=== PATIENT | female | born 1955 | race Caucasian/White ===

== ENCOUNTER 2022-10-22 23:20 | Inpatient (IN) ==
[2022-10-23 00:56] LABS: Basophils # (auto) 0.08 K/uL (0-0.2); Basophils % (auto) 0.9 %; Eosinophils # (auto) 0.29 K/uL (0-0.50); Eosinophils % (auto) 3.2 %; Hematocrit (blood only) 31.9 % (37.0-47.0); Hemoglobin 10.1 g/dl (12.0-16.0); Immature Granulocytes # (auto) 0.13 K/uL (0.01-0.20); Immature Granulocytes % (auto) 1.4 %; Lymphocytes # (auto) 3.49 K/uL (1.2-3.4); Lymphocytes % (auto) 38.3 %; Mean Corpuscular Hemoglobin 25.3 pg (25.0-34.0); Mean Corpuscular Hgb Conc 31.7 g/dL (32.0-36.0); Mean Corpuscular Volume 79.9 fL (80.0-100.0); Mean Platelet Volume 10.5 fL (9.4-12.4); Monocytes # (auto) 0.52 K/uL (0.11-0.59); Monocytes % (auto) 5.7 %; Neutrophils % (auto) 50.5 %; Nucleated RBC # (auto) 0.02 K/uL (0-0.12); Nucleated RBC % (auto) 0.2 %; Platelet Count 396 K/uL (130-400); RDW Coefficient of Variation 17.2 % (11.5-14.5); RDW Standard Deviation 49.2 fL (36.4-46.3); Red Blood Count 3.99 M/uL (4.20-5.40); White Blood Count 9.11 K/ul (4.8-10.8)
[2022-10-23 01:03] LABS: Alanine Aminotransferase 33 U/L (7-52); Albumin Globulin Ratio 1.2 (0.9-2); Albumin Level 4.2 gm/dl (3.4-5.0); Alkaline Phosphatase 290 U/L (34-104); Anion Gap 13 (3-11); Aspartate Aminotransferase 104 U/L (13-39); Bilirubin,Total 0.5 mg/dl (0.2-1.0); Blood Urea Nitrogen 24 mg/dl (6-23); Calcium 9.9 mg/dl (8.6-10.3); Carbon Dioxide 23 mmol/L (21-32); Chloride 100 mmol/L (98-107); Est GFR (African American) 34.6 ml/min; Est GFR (Non-African American) 29.8 ml/min; Globulin 3.5 gm/dl (2.5-4.0); Glucose 93 mg/dl (70-99(Fasting)); Potassium 4.1 mmol/L (3.5-5.1); Sodium 136 mmol/L (136-145); Total Protein 7.7 gm/dl (6.0-8.3)
[2022-10-23 01:09] LABS: Troponin I High Sensitivity 12.1 pg/ml (0-14)
[2022-10-23 02:01] LABS: Magnesium 2.3 mg/dl (1.7-2.4)
[2022-10-23 02:05] LABS: Partial Thromboplastin Ratio 0.9; Partial Thromboplastin Time 26.7 Seconds (21.0-31.0)
[2022-10-23] MEDS ORDERED: methylPREDNISolone 20 MG in SYRINGE 0 ML IV STA (02:39)
[2022-10-23] MEDS ORDERED: IPRATROPIUM BROMIDE NEB SOLN 0.02% 2.5 ML VIAL INH STA (02:39)
[2022-10-23] MEDS ORDERED: XOPENEX/ATROVENT 1.25mg/0.5MG NEB COMBO NEB STA (02:39)
[2022-10-23] MEDS ORDERED: LEVALBUTEROL 1.25MG/0.5ML NEB INH STA (02:39)
--- NOTE | 2022-10-23 02:39 | History & Physical Report ---
Date of Service October 23, 2022 Assessment & Plan (1) Acute hypoxemic respiratory failure: Plan: Secondary to recurrent bronchitis (probable underlying COPD) exacerbation Underlying lung parenchymal abnormalities CT chest from last month (diffuse bronchial thickening, diffuse metastatic disease with chest masses, probable lymphangitic spread), recent diagnosis breast cancer with lung mets CRI, creatinine at baseline chronic anemia, hemoglobin at baseline New diagnosis of hypothyroidism, TSH markedly elevated at 150, patient with mild hypothermia past tobacco abuse Medical telemetry Supplemental O2 baseline ABG Treatment for possible COPD exacerbation nebs RTC, low-dose steroid course (patient concerned about heart racing following steroid Rx administration) 2- step test in a.m. facilitate home O2 Social service re: home O2 arrangement ([employer] was to provide patient's home O2 pending authorization by [employer] as per outpatient documentation.) Initiate levothyroxine, recheck outpatient TSH next month DVT prophylaxis. Heparin subcu DNR as per patient's prior wishes. Patient daughter in law requesting updates for providers. Ms. Yashira Padilla, contact #[phone]. Text document was generated using [employer] voice recognition software. It may contain grammatical or spelling errors. Kindly contact undersigned for clarification of any documentation item in question. History of Present Illness Chief Complaint: Shortness of breath, need home O2 Primary Care Provider: Van Aquino DO History obtained from patient, family, and records. Medical history significant for recent diagnosis of breast cancer with lung mets, CRI (baseline creatinine 1.7), chronic anemia (baseline hemoglobin of 10), past tobacco abuse. Last confinement 2011 under General Surgery service for acute cholecystitis status post cholecystectomy. Patient has not seen a primary care doctor until last month following [facility] ER visit for shortness of breath symptoms along with abnormal chest x-ray findings after patient seen the urgent care center for bronchitis symptoms. CT chest negative for pulmonary embolus. Diffuse metastatic disease with chest masses, sclerotic masses, axillary adenopathy and mediastinal adenopathy. Mild pulmonary edema, reactive airway disease, lymphangitic spread of tumor or typical infection could have the appearance. Patient mentioned left breast mass following ER physician query. Outpatient biopsy of left breast mass and left axillary node biopsy done 2 weeks ago showed invasive carcinoma and focal metastatic carcinoma, respectively. Outpatient G Oncology consultation contemplated this month to discuss options. Patient noted worsening shortness of breath the last couple of weeks without chest pain or fluid retention or leg swelling. Shortness of breath worse on motion. Patient coughing more than usual as per [id number]. Cough productive of clear sputum as per patient. Denies aspiration. Not sure about COVID-19 contacts. Patient has not received COVID-19 vaccination. Patient seen at PCPs office 4 days ago for shortness of breath. O2 sats 89 on room air with drop to 87% with ambulation. Patient qualifies for oxygen with ambulation and possibly nighttime as well as per PCP note. 6-minute ambulation test at doctor's office required for preauthorization as per note. Patient waiting for test date from PCPs office. Worsening shortness of breath at home. No fever, no chills, no chest pain, no fluid retention. Same cough productive of clear sputum. O2 sats noted to be 80s at home despite during oxygen supplement from [employer]. O2 sats 86% upon arrival at the ER. 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 Allergies Allergy/AdvReac Type Severity Reaction Status Date / Time Nitrate Analogues Allergy Intermediate ITCHING Verified 10/22/22 23:42 nitrofurantoin Allergy Intermediate ITCHING Verified 10/22/22 23:42 scopolamine Allergy Unknown Unknown Verified 10/22/22 23:42 Home Medications Medication Instructions Recorded Confirmed Type albuterol sulfate 90 mcg/actuation 2 puff inhalation DIRECTED PRN 10/22/22 10/22/22 History aerosol inhaler Shortness Of Breath Or Wheezing aspirin 81 mg tablet,delayed 81 mg PO DAILY 10/22/22 10/22/22 History release vit C 250 mg-vit E 90 mg-zinc 40 1 tab PO BID 10/22/22 10/22/22 History mg-copper 1 [id number] capsule (PreserVision AREDS-2) Past Med/Surg History Social History Smoking Status: Former smoker Second Hand Exposure: No; Do You Dip or Chew Tobacco: No; Hx Alcohol Use: No Hx Substance Use: No Preferred Language: Georgian Communication Ability: 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: No Beliefs That Will Affect Care: None Current Living Situation: Family Current Living Situation Comment: lives with sister Feels Safe at Home: Yes Assistive Devices: None Review of Systems Review of Systems: As per HPI, all other systems reviewed and negative Physical Exam Physical Exam: GENERAL: Comfortable, pleasant, no respiratory distress SKIN: Pallor, cool HEENT: Bespectacled, pale palpebral conjunctivae, no ptosis, dry buccal mucosa, nasal cannula in place NECK : Supple, no tenderness CHEST : Decreased breath sounds, expiratory wheezes, no tenderness HEART : RRR, no obvious murmurs ABDOMEN: Some distention, nontender EXTREMITIES : No LE swelling/tenderness, no other conspicuous deformities noted NEUROLOGIC : Coherent, no facial asymmetry, no other gross focality Results & Data Results & Data Vital Signs (Past 12 Hours) Vital Signs Temp Pulse Pulse Resp BP BP Pulse Ox 10/23/22 01:08 92 H 24 145/103 H 97 10/23/22 01:07 89 L 10/22/22 23:32 91 H 10/22/22 23:30 86 L 10/22/22 23:24 35.9 C L 100 H 24 116/79 92 O2 Del Method O2 Flow Rate 10/23/22 01:08 Nasal Cannula 2 10/23/22 01:07 Room Air 10/22/22 23:32 10/22/22 23:30 Room Air 10/22/22 23:24 Room Air Laboratory Results Laboratory Results WBC 9.11 K/ul (4.8-10.8) 10/23/22 00:25 RBC 3.99 M/uL (4.20-5.40) L 10/23/22 00:25 Hgb 10.1 g/dl (12.0-16.0) L 10/23/22 00:25 Hct 31.9 % (37.0-47.0) L 10/23/22 00:25 MCV 79.9 fL (80.0-100.0) L 10/23/22 00:25 MCH 25.3 pg (25.0-34.0) 10/23/22 00:25 MCHC 31.7 g/dL (32.0-36.0) L 10/23/22 00:25 RDW Std Deviation 49.2 fL (36.4-46.3) H 10/23/22 00:25 RDW Coeff of Vero 17.2 % (11.5-14.5) H 10/23/22 00:25 Plt Count 396 K/uL (130-400) 10/23/22 00:25 MPV 10.5 fL (9.4-12.4) 10/23/22 00:25 Immature Gran % (Auto) 1.4 % 10/23/22 00:25 Neut % (Auto) 50.5 % 10/23/22 00:25 Lymph % (Auto) 38.3 % 10/23/22 00:25 [place] % (Auto) 5.7 % 10/23/22 00:25 Eos % (Auto) 3.2 % 10/23/22 00:25 Baso % (Auto) 0.9 % 10/23/22 00:25 Neut # (Auto) 4.60 K/uL (1.40-6.50) 10/23/22 00:25 Lymph # (Auto) 3.49 K/uL (1.2-3.4) H 10/23/22 00:25 [place] # (Auto) 0.52 K/uL (0.11-0.59) 10/23/22 00:25 Eos # (Auto) 0.29 K/uL (0-0.50) 10/23/22 00:25 Baso # (Auto) 0.08 K/uL (0-0.2) 10/23/22 00:25 Immature Gran # (Auto) 0.13 K/uL (0.01-0.20) 10/23/22 00:25 Absolute Nucleated RBC 0.02 K/uL (0-0.12) 10/23/22 00:25 Nucleated RBC % (auto) 0.2 % 10/23/22 00:25 APTT 26.7 Seconds (21.0-31.0) 10/23/22 00:25 PTT Ratio 0.9 10/23/22 00:25 Sodium 136 mmol/L (136-145) 10/23/22 00:25 Potassium 4.1 mmol/L (3.5-5.1) 10/23/22 00:25 Chloride 100 mmol/L (98-107) 10/23/22 00:25 Carbon Dioxide 23 mmol/L (21-32) 10/23/22 00:25 Anion Gap 13 (3-11) H 10/23/22 00:25 BUN 24 mg/dl (6-23) H 10/23/22 00:25 Creatinine 1.72 mg/dl (0.6-1.2) H 10/23/22 00:25 Est Cr Clr Drug Dosing Not Reportable 10/23/22 00:25 Est GFR ( Amer) 34.6 ml/min 10/23/22 00:25 Est GFR (Non-Af Amer) 29.8 ml/min 10/23/22 00:25 BUN/Creatinine Ratio 14.0 (10-20) 10/23/22 00: Glucose 93 mg/dl (70-99(Fasting)) 10/23/22 00:25 Calcium 9.9 mg/dl (8.6-10.3) 10/23/22 00:25 Magnesium 2.3 mg/dl (1.7-2.4) 10/23/22 00:25 Total Bilirubin 0.5 mg/dl (0.2-1.0) 10/23/22 00:25 AST 104 U/L (13-39) H 10/23/22 00:25 ALT 33 U/L (7-52) 10/23/22 00:25 Alkaline Phosphatase 290 U/L (34-104) H 10/23/22 00:25 Troponin I High Sens 12.1 pg/ml (0-14) 10/23/22 00:25 Total Protein 7.7 gm/dl (6.0-8.3) 10/23/22 00:25 Albumin 4.2 gm/dl (3.4-5.0) 10/23/22 00:25 Globulin 3.5 gm/dl (2.5-4.0) 10/23/22 00:25 Albumin/Globulin Ratio 1.2 (0.9-2) 10/23/22 00:25 SARS-CoV-2, RNA, NAAT NEGATIVE (NEGATIVE) 10/23/22 00:25 Diagnostic Findings Chest x-ray as per my interpretation diffuse interstitial thickening EKG as per my interpretation :Rate 95, NSR, LAD, LAFB, no ischemia
[2022-10-23 03:36] LABS: Base Excess ABG -1.1 mEq/L (-9-1.8); HCO3 ABG 24 mmol/L (19-24); PCO2 ABG 38 mmHg (35-46); PO2 ABG 80 mmHg (80-95)
[2022-10-23 03:38] LABS: Allen Test Pos (Pos)
[2022-10-23] MEDS ORDERED: PROMETHAZINE HCL 6.25 MG in SODIUM CHLORIDE 0.9% 50 ML IV PRN (06:10)
[2022-10-23] MEDS ORDERED: traMADol HCL 50 MG TABLET PO PRN (06:10)
[2022-10-23] MEDS ORDERED: ACETAMINOPHEN 325 MG TAB PO PRN (06:10)
[2022-10-23 06:18] LABS: Thyroid Stimulating Hormone 150.853 uIu/ml (0.300-4.500)
--- NOTE | 2022-10-23 06:53 | XRay Report ---
XR chest 1V portable CLINICAL HISTORY: Dyspnea. COMPARISON STUDY: Chest radiograph November 30, 2011. FINDINGS: There is no pneumothorax. No definite pleural effusion is noted. Diffuse reticulonodular in terstitial thickening is noted. There is no lobar consolidation. Cardiomediastinal silhouette is unre markable on portable AP exam. IMPRESSION: Nonspecific diffuse reticulonodular interstitial thickening. ACT 112: Negative or not required by law. Electronically signed by: Manpreet Edward M.D. 10/23/2022 6:52 AM
[2022-10-23] MEDS ORDERED: XOPENEX/ATROVENT 1.25mg/0.5MG NEB COMBO NEB SCH (07:00)
[2022-10-23] MEDS: IPRATROPIUM BROMIDE NEB SOLN 0.02% 2.5 ML VIAL INH SCH ×4 (07:02→19:58)
[2022-10-23] MEDS: LEVALBUTEROL 1.25MG/0.5ML NEB INH SCH ×4 (07:02→19:58)
[2022-10-23 07:14] LABS: T4 Free Thyroxine < 0.25 ng/dl (0.61-1.60)
[2022-10-23] MEDS: HEPARIN SOD 5,000 UNIT/0.5 ML VIAL SQ SCH ×3 (08:03→22:58)
[2022-10-23] MEDS: ASPIRIN 81 MG ECTAB PO SCH (08:03)
[2022-10-23] MEDS: CEROVITE ADV FORMULA TAB PO SCH ×2 (08:03→22:58)
--- NOTE | 2022-10-23 08:17 | Emergency Department Note ---
Impression & Plan Hypoxia Admit to the [facility] ED Provider Note NAME: JACK FRASER AGE: 67 SEX: F ARRIVES VIA: Walk-In INFORMANT: Patient and her daughter ED PROVIDER(S): Herlinda Anderson DO CHIEF COMPLAINT: Low oxygen saturation and shortness of breath PLAN: Disposition: Admit to the [facility] Condition: Guarded MEDICAL DECISION MAKING: This is a 67-year-old female patient presents emergency department with low O2 saturations and shortness of breath. Patient has a history of lung cancer who is in the process of trying to secure home oxygen. Unfortunately because of insurance reasons, the patient was unable to secure home oxygen. She was trying to use oxygen boost canisters which she had purchased at [facility] but kept feeling more uncomfortable and had an O2 saturation readings between 84 and 86% at home. On presentation to the ER, her O2 sat was 86% on room air. I did review multiple external medical records in [facility] including Dr. Rea's primary care visit as well as breast biopsy records. Laboratory studies revealed a mild anemia and slightly elevated creatinine. [facility] and [facility] will [facility] for further management. Triage Nursing notes reviewed and agree with them. Additional history obtained from the patient's daughter who is at the bedside. External medical records were reviewed from [facility] Vital Signs: reviewed and remarkable for tachycardia and hypoxia Differential diagnosis: Hypoxia, pneumonia, lung cancer, breast cancer, pneumothorax ER treatment provided: Cardiac monitoring, twelve-lead EKG, supplemental O2 Diagnostics independently interpreted by me: ECG: Normal sinus rhythm at a rate of [address] segment elevation or signs of ischemia. There is no ectopy. Cardiac Monitoring: Normal sinus rhythm at a rate of 90 Laboratory studies: See below Imaging studies: As per my independent interpretation Portable chest x-ray: Chronic interstitial changes HPI: 67/F arrives for evaluation of hypoxia. Patient has a history of lung cancer and has been having shortness of breath and low oxygen saturations. She was seen at her PCP office on Wednesday where she was diagnosed with hypoxia and they ordered her to have home oxygen. She had been trying to work through [employer] and [employer] to obtain home oxygen but was unsuccessful. She has been using oxygen boost canisters that she purchased at [employer] to help her breathe. Tonight, she became so uncomfortable without the oxygen she came here to the emergency department for help. PAST MEDICAL HISTORY:See Below PAST SURGICAL HISTORY:See Below FAMILY HISTORY:See Below SOCIAL HISTORY:See Below HOME MEDICATIONS:See list ALLERGIES:See list VITALS:See Below PHYSICAL EXAMINATION: HEENT: Head - normocephalic and atraumatic. Pupils are equal, round, and reactive to light. Extraocular eye muscles are intact, and sclera are anicteric. Nose - moist nasal mucosa without discharge. Mouth - moist buccal mucosa. Oropharynx is nonerythematous and there is no tonsillar exudate or edema noted. Neck: Supple; no cervical lymphadenopathy or JVD Heart: Regular rate and rhythm. There is a normal S1 and S2 with no murmurs, clicks, or gallops appreciated. Lungs: Clear to auscultation bilaterally with no wheezes, rales, or rhonchi. Abdomen: Soft, completely nontender, nondistended, with good bowel sounds. There are no palpable pulsatile masses or hepatosplenomegaly. There is no guard ing, rigidity, or rebound noted. Extremities: No evidence of cyanosis, clubbing, or edema. There are easily palpable peripheral pulses. Skin: warm and dry with good turgor and no rashes. ED COURSE: Times/Reassessments: 2335: Patient was evaluated in room B3. A complete history and physical was performed. External records from [facility] were reviewed. Breast cancer biopsies result were reviewed. An IV lock was initiated and labs were drawn as above. A twelve-lead EKG was obtained. An order was placed for continuous cardiac monitoring. The patient was in a normal sinus rhythm at a rate of 90. Herlinda Anderson DO Past Med/Surg History Social History Smoking Status: Former smoker Second Hand Exposure: No; Do You Dip or Chew Tobacco: No; Hx Alcohol Use: No Hx Substance Use: No Preferred Language: Welsh Communication Ability: Effective Publications Writer Required: No Beliefs That Will Affect Care: None Current Living Situation: Family Current Living Situation Comment: lives with sister Feels Safe at Home: Yes Assistive Devices: None Allergies Allergies Allergy/AdvReac Type Severity Reaction Status Date / Time Nitrate Analogues Allergy Intermediate ITCHING Verified 10/22/22 23:42 nitrofurantoin Allergy Intermediate ITCHING Verified 10/22/22 23:42 scopolamine Allergy Unknown Unknown Verified 10/22/22 23:42 Home Meds Home Medications Medication Instructions Recorded Confirmed albuterol sulfate 90 mcg/actuation 2 puff inhalation DIRECTED PRN 10/22/22 10/22/22 aerosol inhaler Shortness Of Breath Or Wheezing aspirin 81 mg tablet,delayed 81 mg PO DAILY 10/22/22 10/22/22 release vit C 250 mg-vit E 90 mg-zinc 40 1 tab PO BID 10/22/22 10/22/22 mg-copper 1 [id number] capsule (PreserVision AREDS-2) Results & Data (ED) Vital Signs Vital Signs - 24 hr 10/22/22 23:24 10/22/22 23:30 10/22/22 23:32 Temperature 35.9 C L Temperature Source Temporal Artery Scan Pulse Rate 100 H 91 H Pulse Rate [Apical] Respiratory Rate 24 Respiratory Effort / Characteristics Non-Labored Spontaneous Respiratory Depth Normal Blood Pressure 116/79 Blood Pressure [Right Arm] Blood Pressure Mean 91 Blood Pressure Mean [Right Arm] Pulse Oximetry 92 86 L Oxygen Delivery Method Room Air Room Air Oxygen Flow Rate Sepsis Recent Fever Within 48 Hours No Sepsis New/Unexplained Change in Mental Status No Sepsis Action Taken by Nursing No Action Required Oxygen Flow Rate - Titration 2 Pulse Oximetry Post Tiitration 92 10/23/22 01:07 10/23/22 01:08 Temperature Temperature Source Pulse Rate Pulse Rate [Apical] 92 H Respiratory Rate 24 Respiratory Effort / Characteristics Respiratory Depth Blood Pressure Blood Pressure [Right Arm] 145/103 H Blood Pressure Mean Blood Pressure Mean [Right Arm] 117 Pulse Oximetry 89 L 97 Oxygen Delivery Method Room Air Nasal Cannula Oxygen Flow Rate 2 Sepsis Recent Fever Within 48 Hours Sepsis New/Unexplained Change in Mental Status Sepsis Action Taken by Nursing Oxygen Flow Rate - Titration Pulse Oximetry Post Tiitration Laboratory Data 10/23/22 00:25 10/23/22 00:25 Lab Results 10/23/22 10/23/22 10/23/22 Range/Units 00:25 00:25 00:25 WBC 9.11 (4.8-10.8) K/ul RBC 3.99 L (4.20-5.40) M/uL Hgb 10.1 L (12.0-16.0) g/dl Hct 31.9 L (37.0-47.0) % MCV 79.9 L (80.0-100.0) fL MCH 25.3 (25.0-34.0) pg MCHC 31.7 L (32.0-36.0) g/dL RDW Std Deviation 49.2 H (36.4-46.3) fL RDW Coeff of Vero 17.2 H (11.5-14.5) % Plt Count 396 (130-400) K/uL MPV 10.5 (9.4-12.4) fL Immature Gran % (Auto) 1.4 % Neut % (Auto) 50.5 % Lymph % (Auto) 38.3 % [place] % (Auto) 5.7 % Eos % (Auto) 3.2 % Baso % (Auto) 0.9 % Neut # (Auto) 4.60 (1.40-6.50) K/uL Lymph # (Auto) 3.49 H (1.2-3.4) K/uL [place] # (Auto) 0.52 (0.11-0.59) K/uL Eos # (Auto) 0.29 (0-0.50) K/uL Baso # (Auto) 0.08 (0-0.2) K/uL Immature Gran # (Auto) 0.13 (0.01-0.20) K/uL Absolute Nucleated RBC 0.02 (0-0.12) K/uL Nucleated RBC % (auto) 0.2 % APTT (21.0-31.0) Seconds PTT Ratio Sodium 136 (136-145) mmol/L Potassium 4.1 (3.5-5.1) mmol/L Chloride 100 (98-107) mmol/L Carbon Dioxide 23 (21-32) mmol/L Anion Gap 13 H (3-11) BUN 24 H (6-23) mg/dl Creatinine 1.72 H (0.6-1.2) mg/dl Est Cr Clr Drug Dosing Not Reportable Est GFR ( Amer) 34.6 ml/min Est GFR (Non-Af Amer) 29.8 ml/min BUN/Creatinine Ratio 14.0 (10-20) Glucose 93 (70-99(Fasting)) mg/dl Calcium 9.9 (8.6-10.3) mg/dl Magnesium 2.3 (1.7-2.4) mg/dl Total Bilirubin 0.5 (0.2-1.0) mg/dl AST 104 H (13-39) U/L ALT 33 (7-52) U/L Alkaline Phosphatase 290 H (34-104) U/L Troponin I High Sens 12.1 (0-14) pg/ml Total Protein 7.7 (6.0-8.3) gm/dl Albumin 4.2 (3.4-5.0) gm/dl Globulin 3.5 (2.5-4.0) gm/dl Albumin/Globulin Ratio 1.2 (0.9-2) TSH (0.300-4.500) uIu/ml Free T4 (0.61-1.60) ng/dl SARS-CoV-2, RNA, NAAT NEGATIVE (NEGATIVE) 10/23/22 10/23/22 Range/Units 00:25 00:25 WBC (4.8-10.8) K/ul RBC (4.20-5.40) M/uL Hgb (12.0-16.0) g/dl Hct (37.0-47.0) % MCV (80.0-100.0) fL MCH (25.0-34.0) pg MCHC (32.0-36.0) g/dL RDW Std Deviation (36.4-46.3) fL RDW Coeff of Vero (11.5-14.5) % Plt Count (130-400) K/uL MPV (9.4-12.4) fL Immature Gran % (Auto) % Neut % (Auto) % Lymph % (Auto) % [place] % (Auto) % Eos % (Auto) % Baso % (Auto) % Neut # (Auto) (1.40-6.50) K/uL Lymph # (Auto) (1.2-3.4) K/uL [place] # (Auto) (0.11-0.59) K/uL Eos # (Auto) (0-0.50) K/uL Baso # (Auto) (0-0.2) K/uL Immature Gran # (Auto) (0.01-0.20) K/uL Absolute Nucleated RBC (0-0.12) K/uL Nucleated RBC % (auto) % APTT 26.7 (21.0-31.0) Seconds PTT Ratio 0.9 Sodium (136-145) mmol/L Potassium (3.5-5.1) mmol/L Chloride (98-107) mmol/L Carbon Dioxide (21-32) mmol/L Anion Gap (3-11) BUN (6-23) mg/dl Creatinine (0.6-1.2) mg/dl Est Cr Clr Drug Dosing Est GFR ( Amer) ml/min Est GFR (Non-Af Amer) ml/min BUN/Creatinine Ratio (10-20) Glucose (70-99(Fasting)) mg/dl Calcium (8.6-10.3) mg/dl Magnesium (1.7-2.4) mg/dl Total Bilirubin (0.2-1.0) mg/dl AST (13-39) U/L ALT (7-52) U/L Alkaline Phosphatase (34-104) U/L Troponin I High Sens (0-14) pg/ml Total Protein (6.0-8.3) gm/dl Albumin (3.4-5.0) gm/dl Globulin (2.5-4.0) gm/dl Albumin/Globulin Ratio (0.9-2) TSH 150.853 H (0.300-4.500) uIu/ml Free T4 < 0.25 L (0.61-1.60) ng/dl SARS-CoV-2, RNA, NAAT (NEGATIVE) Administered Medications Aspirin (Aspirin 81 Mg Ectab) 81 mg PO DAILY [facility] Stop: 11/22/22 08:59 Last Admin: 10/23/22 08:03 Dose: 81 mg Documented By: EAN Budesonide (Budesonide 0.25 Mg/2 Ml Vial (Pulmicort)) 0.25 mg NEB BIDR [facility] Stop: 11/22/22 18:59 Last Admin: 10/23/22 19:58 Dose: 0.25 mg Documented By: CHANDRIKA Doxycycline Hyclate (Doxycycline Hyclate 100 Mg Cap) 100 mg PO BID [facility] Stop: 10/30/22 11:29 Last Admin: 10/23/22 11:46 Dose: 100 mg Documented By: EAN Formoterol Fumarate (Formoterol 20 Mcg/2 Ml Vial) 20 mcg INH BIDR [facility] Stop: 11/22/22 18:59 Last Admin: 10/23/22 19:58 Dose: 20 mcg Documented By: CHANDRIKA Guaifenesin (Guaifenesin 600 Mg Tabcr) 600 mg PO Q12 [facility] Stop: 11/22/22 11:24 Last Admin: 10/23/22 11:46 Dose: 600 mg Documented By: EAN Heparin Sodium (Porcine) (Heparin Sod 5,000 Unit/0.5 Ml Vial) 5,000 units SQ Q8 [facility] Stop: 11/22/22 06:09 Last Admin: 10/23/22 14:58 Dose: 5,000 units Documented By: Admin: 10/23/22 08:03 Dose: 5,000 units Documented By: EAN Ceftriaxone Sodium 2,000 mg/ (Dextrose) 70 mls @ 100 mls/hr IV DAILY SHEREEN; Protocol Stop: 10/30/22 11:29 Last Infusion: 10/23/22 12:28 Dose: 0 mls/hr Documented By: Admin: 10/23/22 11:46 Dose: 100 mls/hr Documented By: EAN Ipratropium Spring (Ipratropium Spring Neb Soln 0.02% 2.5 Ml Vial) 0.5 mg INH Q6R [facility]EN Stop: 11/22/22 06:59 Last Admin: 10/23/22 19:58 Dose: Not Given Documented By: Admin: 10/23/22 14:06 Dose: 0.5 mg Documented By: Admin: 10/23/22 08:31 Dose: 0.5 mg Documented By: Admin: 10/23/22 07:02 Dose: Not Given Documented By: LENCHO Levalbuterol HCl (Levalbuterol 1.25mg/0.5ml Neb) 1.25 mg INH Q6R SHEREEN Stop: 11/22/22 06:59 Last Admin: 10/23/22 19:58 Dose: Not Given Documented By: Admin: 10/23/22 14:06 Dose: 1.25 mg Documented By: Admin: 10/23/22 08:32 Dose: 1.25 mg Documented By: Admin: 10/23/22 07:02 Dose: Not Given Documented By: LENCHO Multivitamins/Minerals (Cerovite Adv Formula Tab) 1 tab PO BID [facility] Stop: 11/22/22 08:59 Last Admin: 10/23/22 08:03 Dose: 1 tab Documented By: EAN Sodium Chloride (Sodium Chlor 7% 4 Ml Neb) 4 ml NEB BIDR [facility]EN Stop: 11/22/22 11:19 Last Admin: 10/23/22 19:59 Dose: 4 ml Documented By: Admin: 10/23/22 14:06 Dose: 4 ml Documented By: JBL Discontinued Medications Ipratropium Spring (Ipratropium Spring Neb Soln 0.02% 2.5 Ml Vial) 0.5 mg INH NOW STA Stop: 10/23/22 02:40 Last Admin: 10/23/22 02:55 Dose: 0.5 mg Documented By: SG Levalbuterol HCl (Levalbuterol 1.25mg/0.5ml Neb) 1.25 mg INH NOW STA Stop: 10/23/22 02:40 Last Admin: 10/23/22 02:55 Dose: 1.25 mg Documented By: SG Methylprednisolone (Methylprednisolone 40 Mg/Ml Vial) 20 mg IV ONE STA Stop: 10/23/22 02:43 Last Admin: 10/23/22 02:55 Dose: 20 mg Documented By: SG Imaging Data Radiologist's Impression: Chest X-Ray 10/22/22 23:57 XR chest 1V portable CLINICAL HISTORY: Dyspnea. COMPARISON STUDY: Chest radiograph November 30, 2011. FINDINGS: There is no pneumothorax. No definite pleural effusion is noted. Diffuse reticulonodular interstitial thickening is noted. There is no lobar consolidation. Cardiomediastinal silhouette is unremarkable on portable AP exam. IMPRESSION: Nonspecific diffuse reticulonodular interstitial thickening. ACT 112: Negative or not required by law. Electronically signed by: Manpreet Edward M.D. 10/23/2022 6:52 AM Discharge Plan Visit Data Chief Complaint: Respiratory Problems Stated Complaint: TROUBLE BREATHING,BREAST AND LUNG CANCER ED Provider: Herlinda Anderson Discharge Problem: Hypoxia Patient Disposition: Admitted As Inpatient Discharge Instructions Interventions: ED Discharge Assessment Last Done: 10/23/22 17:25
--- NOTE | 2022-10-23 09:35 | CT Scan Report ---
CT OF THE CHEST WITHOUT IV CONTRAST CLINICAL HISTORY: Hypoxia, shortness of breath, breast cancer. COMPARISON STUDY: Chest radiographs performed earlier today and November 30, 2011. CT DOSE: 257.06 mGy.cm TECHNIQUE: Axial images of the chest were obtained without IV contrast. Images were reviewed in the axial, sagittal, and coronal planes. IV contrast was not administered for this examination. Automat ed exposure control was utilized for the study. A dose lowering technique was utilized adhering to t he principles of ALA. FINDINGS: Note is made of a medial left breast mass with nipple retraction. This appears to extend t o the left chest wall. This lesion measures approximately 5.8 x 4.1 cm. There is an additional 1.5 x 1.3 cm nodular density within the left breast. There are multiple enlarged left axillary lymph nodes, one of which contains a biopsy clip. This node measures 1.4 x 1.3 cm. Multiple pathologically enlarg ed mediastinal lymph nodes are noted. Index right paratracheal lymph node on axial image 101 of 286 m easures 2.6 x 2.2 cm. The size of the heart is normal. There is no significant pericardial effusion. There is no pneumothorax. There are trace bilateral pleural effusions. There is extensive nodular int erlobular septal thickening throughout the lungs. Innumerable ill-defined nodules throughout the lung s measure up to 1.3 cm. There is a 5.7 x 3.4 cm focus of groundglass opacity within the right lung ap ex. Nodular thickening along the bronchovascular bundles is noted. There are extensive mixed scleroti c and lytic lesions throughout the visualized skeletal structures. There is a mild pathologic fractur e of T5. A pathologic fracture left sixth rib is noted. IMPRESSION: 1. Findings consistent with a left breast cancer with extensive vianney, skeletal and pulmonary metasta ses, as described above. 2. Extensive interlobular septal thickening throughout the lungs suggestive of lymphangitic carcinoma tosis. A few groundglass opacities within the lungs, including a 5.7 x 3.4 cm right apical opacity. T his is nonspecific and could reflect a superimposed infectious process. Pulmonary edema is also withi n the differential. 3. Trace bilateral pleural effusions. ACT 112: Negative or not required by law. Electronically signed by: Manpreet Edward M.D. 10/23/2022 9:34 AM
--- NOTE | 2022-10-23 11:38 | Pulmonary Consultation ---
Date of Consultation October 23, 2022 Assessment & Plan (1) Acute hypoxemic respiratory failure: (2) Abnormal chest CT: (3) Metastasis from breast cancer: (4) Shortness of breath: (5) Hypothyroidism: Plan CT chest 10/23/2022 personally reviewed: Interlobular thickening appreciated bilaterally upper and lower lobes Multiple pulmonary nodules appreciated bilaterally Patchy groundglass opacity in the right upper lobe Mediastinal lymphadenopathy especially station 2R No pleural effusion ABG 10/23/2022: 7.40/38/80 on 2 L -- Acute hypoxic respiratory failure Etiology is likely the patient intake spread to the lungs There is a groundglass patchy opacity in the right upper lobe, atypical pneumonia can present this way SARS cov NAAT negative Respiratory bio fire negative for everything except entero/rhinovirus BNP 45 Procalcitonin 0.12 --Abnormal chest CT Interlobular thickening appreciated bilaterally upper and lower lobes with multiple pulmonary nodules Likely lymphangitic spread --New onset hypothyroidism TSH > 150 Management as per primary team --Metastatic breast CA --DNR/DNI Plan: Okay to continue with antibiotics to cover for atypical organisms Recommend 2D echo BiPAP nightly and as needed shortness of breath Overall prognosis of the patient is poor. I spoke with the patient's son and gave him the current condition as well as prognosis Palliative care consult would be recommended All question inquiries of the patient as well as patient's son were answered in depth Please note the above document was generated using voice recognition software. It may contain grammatical, syntax or spelling errors.Any formal questions or concerns about the content, text or information contained within the body of this dictation should be directly addressed to the provider for clarification. History of Present Illness Attending Physician: Usman Veronica MD History of Present Illness 67-year-old female presents to the hospital for shortness of breath Past medical history: Breast cancer stage IV with lung mets, CKD Pulmonary consulted for hypoxia At the time of examination patient's [id number] as well as son were in the room. Patient was saturating 97% on 2 L nasal cannula. She says she is feeling better. Denies any chest pain. No headache, no blurry vision Has been coughing up bringing up clear phlegm. Denies any hemoptysis Denies any fever or chills. Patient was diagnosed with breast cancer approximately 7-10 days ago. Patient knows that she has breast cancer which is spread to the lung. She is not interested in chemotherapy or radiation therapy. She is agreeable to take something by mouth. She does not even want to know the stage of her disease. Social history: Approximately 28-ijxl-wwal smoking history, quit in 2018. No personal or family history of asthma No history of lung cancer in the family History of breast cancer in one of the sister Allergies Allergy/AdvReac Type Severity Reaction Status Date / Time Nitrate Analogues Allergy Intermediate ITCHING Verified 10/22/22 23:42 nitrofurantoin Allergy Intermediate ITCHING Verified 10/22/22 23:42 scopolamine Allergy Unknown Unknown Verified 10/22/22 23:42 Home Medications Medication Instructions Recorded Confirmed Type albuterol sulfate 90 mcg/actuation 2 puff inhalation DIRECTED PRN 10/22/22 10/22/22 History aerosol inhaler Shortness Of Breath Or Wheezing aspirin 81 mg tablet,delayed 81 mg PO DAILY 10/22/22 10/22/22 History release vit C 250 mg-vit E 90 mg-zinc 40 1 tab PO BID 10/22/22 10/22/22 History mg-copper 1 [id number] capsule (PreserVision AREDS-2) Patient History Social History Smoking Status: Former smoker Second Hand Exposure: No; Do You Dip or Chew Tobacco: No; Tobacco Cessation Education Requested by Patient: No Hx Alcohol Use: No Hx Substance Use: No Preferred Language: Greek Communication Ability: Effective Customer Service Technician Required: No Beliefs That Will Affect Care: None Current Living Situation: Family Current Living Situation Comment: Lives at home with sister Other Information That Helps Us Care for You: No Feels Safe at Home: Yes Safety Concerns: Feels Safe At This Time Assistive Devices: Wheelchair Review of Systems Review of Systems: All systems reviewed & are unremarkable except as noted in HPI & below Physical Exam Physical Exam: Constitutional: No acute distress HEENT: EOMI, PERRLA Respiratory system: Decreased air entry bilaterally, positive rhonchi, minimal expiratory wheeze, positive crackles bilateral lower lobes CVS: S1-S2 positive, no murmurs or gallops Abdomen: Soft, nontender, nondistended, positive bowel sounds x4 Extremities: +2 pulses bilaterally radialis/ dorsalis pedis, no cyanosis, +1 edema bilateral lower extremity Neuro: Awake alert oriented x3 Psych: Normal mood and affect G/U: No Byrnes Musculoskeletal: Left-sided breast mass appreciated Skin: no rashes, warm and dry Lymphatic: no cervical or axillary lymphadenopathy Results & Data Results & Data Vital Signs (Past 12 Hours) Vital Signs Pulse Pulse Pulse Pulse Pulse Pulse Pulse 10/23/22 09:00 98 H 113 H 116 H 114 H 98 H 10/23/22 08:33 98 H 10/23/22 08:09 10/23/22 06:53 110 H 10/23/22 06:00 83 10/23/22 06:00 10/23/22 05:00 89 10/23/22 04:00 87 10/23/22 03:43 88 10/23/22 03:00 89 10/23/22 01:08 92 H 10/23/22 01:07 Resp Resp Resp Resp Resp Resp BP 10/23/22 09:00 20 26 H 24 25 H 20 10/23/22 08:33 26 H 10/23/22 08:09 10/23/22 06:53 10/23/22 06:00 15 122/76 10/23/22 06:00 122/76 10/23/22 05:00 16 126/97 10/23/22 04:00 16 118/67 10/23/22 03:43 10/23/22 03:00 21 10/23/22 01:08 24 10/23/22 01:07 BP Pulse Ox Pulse Ox Pulse Ox Pulse Ox Pulse Ox Pulse Ox 10/23/22 09:00 93 94 86 L 93 87 L 10/23/22 08:33 94 10/23/22 08:09 10/23/22 06:53 10/23/22 06:00 97 10/23/22 06:00 10/23/22 05:00 97 10/23/22 04:00 96 10/23/22 03:43 10/23/22 03:00 128/86 95 10/23/22 01:08 145/103 H 97 10/23/22 01:07 89 L O2 Del Method O2 Flow Rate O2 Flow Rate O2 Flow Rate O2 Flow Rate O2 Flow Rate 10/23/22 09:00 2 4 2 2 10/23/22 08:33 Nasal Cannula 3 10/23/22 08:09 Nasal Cannula 2 10/23/22 06:53 10/23/22 06:00 10/23/22 06:00 10/23/22 05:00 10/23/22 04:00 10/23/22 03:43 10/23/22 03:00 Nasal Cannula 2 10/23/22 01:08 Nasal Cannula 2 10/23/22 01:07 Room Air Laboratory Results 10/23/22 00:25 10/23/22 00:25 PG Care Time/CCT Total # of Minutes Spent Total Time Spent with Patient: Total time spent is greater than 50% in coordination of care (as documented) at patient's floor/unit and/or counseling patient: Coding Level of Care Code 01861 INT INP/OBS CARE 3/75MIN Diagnoses Acute hypoxemic respiratory failure J96.[address] R93.89 Metastasis from breast cancer C79.9; C50.919 Shortness of breath R06.02 Hypothyroidism E03.9
[2022-10-23] MEDS: guaiFENesin 600 MG TABCR PO SCH ×2 (11:46→22:58)
[2022-10-23] MEDS: cefTRIAXone SODIUM 2,000 MG in DEXTROSE 5% 50 ML IV SCH (11:46)
[2022-10-23] MEDS: DOXYCYCLINE HYCLATE 100 MG CAP PO SCH ×3 (11:46→22:59)
[2022-10-23 12:56] LABS: Adenovirus PCR Not Detected (NotDetected); Bordetella parapertussis PCR Not Detected (NotDetected); Bordetella pertussis PCR Not Detected (NotDetected); Chlamydia pneumoniae PCR Not Detected (NotDetected); Coronavirus 229E PCR Not Detected (NotDetected); Coronavirus CoV-2 (COVID19)PCR Not Detected (NotDetected); Coronavirus HKU1 PCR Not Detected (NotDetected); Coronavirus NL63 PCR Not Detected (NotDetected); Coronavirus OC43PCR Not Detected (NotDetected); Human Metapneumovirus PCR Not Detected (NotDetected); Influenza A PCR Not Detected (NotDetected); Influenza B PCR Not Detected (NotDetected); Mycoplasma pneumoniae PCR Not Detected (NotDetected); Parainfluenza Virus 1 PCR Not Detected (NotDetected); Parainfluenza Virus 2 PCR Not Detected (NotDetected); Parainfluenza Virus 3 PCR Not Detected (NotDetected); Parainfluenza Virus 4 PCR Not Detected (NotDetected); Respiratory Syncytial VirusPCR Not Detected (NotDetected)
[2022-10-23 13:02] LABS: Rhinovirus/Enterovirus PCR DETECTED (NotDetected)
--- NOTE | 2022-10-23 14:04 | Hospitalist Progress Note ---
Date of Service October 23, 2022 delayed entry date of service noted above Assessment & Plan (1) Acute hypoxemic respiratory failure: Plan: (1) Acute hypoxemic respiratory failure: Plan: Secondary to recurrent bronchitis (probable underlying COPD) exacerbation Underlying lung parenchymal abnormalities CT chest from last month (diffuse bronchial thickening, diffuse metastatic disease with chest masses, probable lymphangitic spread), recent diagnosis breast cancer with lung mets -- on 2 L of oxygen by nasal cannula -- ceftriaxone plus doxycycline IV Xopenex/Atrovent, Pulmicort, formoterol -- Will need home oxygen supplement -- Appreciate pulmonology service recommendations Chronic kidney disease, stage 3CRI, creatinine at baseline chronic anemia, hemoglobin at baseline New diagnosis of hypothyroidism, TSH markedly elevated at 150, -- Levothyroxine 50 mcg started past tobacco abuse DVT prophylaxis. Heparin subcu DNR as per patient's prior wishes. Disposition Anticipate discharge to home when medically stable Will need oxygen supplement upon discharge to home Admission and Anticipated Discharge Date Admission Date: October 23, 2022 Subjective ff up for acute hypoxic respiratory failure, etc seen resting in bed, comfortable, not in distress states breathing feels improved since arrival has occasional productive cough, no hemoptysos no fever/chills no other symptoms Review of Systems Review of Systems: all noted and negative except for above Physical Exam Physical Exam: General- oriented x 3, not in distress, speaks in sentences with no effort or accessory muscle use Head- atraumatic Eyes- PERRL, EOMI, anicteric ENT- oropharynx clear Neck- supple, no JVD, no adenopathy, no thyromegaly; carotids +2/2, no bruits appreciated Lungs- (+) bilateral scattered moderate wheezing good air entry BL Heart- normal rate, regular rhythm; no murmur, no gallop, no rub appreciated Abdomen- normal bowel sounds, nondistended, soft, nontender, no masses or hepatosplenomegaly Extremities- no pretibial edema, no calf tenderness; peripheral pulses intact Neuro- alert, oriented x 3; CN 2-12 grossly intact; motor 5/5 bilaterally;sensation 100% on all extremities; no other gross focal neurologic deficits Skin- warm & dry Results & Data Results & Data Vital Signs (Past 12 Hours) Vital Signs Pulse Pulse Pulse Pulse Pulse Pulse Pulse 10/23/22 09:00 98 H 113 H 116 H 114 H 98 H 10/23/22 08:33 98 H 10/23/22 08:09 10/23/22 06:53 110 H 10/23/22 06:00 83 10/23/22 06:00 10/23/22 05:00 89 10/23/22 04:00 87 10/23/22 03:43 88 10/23/22 03:00 89 Resp Resp Resp Resp Resp Resp BP 10/23/22 09:00 20 26 H 24 25 H 20 10/23/22 08:33 26 H 10/23/22 08:09 10/23/22 06:53 10/23/22 06:00 15 122/76 10/23/22 06:00 122/76 10/23/22 05:00 16 126/97 10/23/22 04:00 16 118/67 10/23/22 03:43 10/23/22 03:00 21 BP Pulse Ox Pulse Ox Pulse Ox Pulse Ox Pulse Ox Pulse Ox 10/23/22 09:00 93 94 86 L 93 87 L 10/23/22 08:33 94 10/23/22 08:09 10/23/22 06:53 10/23/22 06:00 97 10/23/22 06:00 10/23/22 05:00 97 10/23/22 04:00 96 10/23/22 03:43 10/23/22 03:00 128/86 95 O2 Del Method O2 Flow Rate O2 Flow Rate O2 Flow Rate O2 Flow Rate O2 Flow Rate 10/23/22 09:00 2 4 2 2 10/23/22 08:33 Nasal Cannula 3 10/23/22 08:09 Nasal Cannula 2 10/23/22 06:53 10/23/22 06:00 10/23/22 06:00 10/23/22 05:00 10/23/22 04:00 10/23/22 03:43 10/23/22 03:00 Nasal Cannula 2 all noted and reviewed including below
[2022-10-23] MEDS: SODIUM CHLOR 7% 4 ML NEB NEB SCH ×2 (14:06→19:59)
[2022-10-23] MEDS: BUDESONIDE 0.25 MG/2 ML VIAL (PULMICORT) NEB SCH (19:58)
[2022-10-23] MEDS: FORMOTEROL 20 MCG/2 ML VIAL INH SCH (19:58)
--- NOTE | 2022-10-23 22:00 | Electrocardiogram Report ---
Test Reason : Blood Pressure : / mmHG Vent. Rate : 094 BPM Atrial Rate : 094 BPM P-R Int : 136 ms QRS Dur : 080 ms QT Int : 356 ms P-R-T Axes : 065 000 041 degrees QTc Int : 445 ms Normal sinus rhythm Possible Left atrial enlargement Borderline ECG When compared with ECG of 30-NOV-2011 11:45, Vent. rate has increased BY 31 BPM Confirmed by Bebeto Gaviria ([id number]) on 10/23/2022 9:59:56 PM Referred By: REFERRED SELF Confirmed By:Bebeto Gaviria
[2022-10-23] MEDS: UMECLIDINIUM BROMIDE 62.5MCG/BLISTER 7 PUFFS/INHALER INH SCH (22:59)
[2022-10-24] MEDS: IPRATROPIUM BROMIDE NEB SOLN 0.02% 2.5 ML VIAL INH SCH ×5 (00:31→23:06)
[2022-10-24] MEDS: LEVALBUTEROL 1.25MG/0.5ML NEB INH SCH ×5 (00:31→23:06)
[2022-10-24] MEDS: HEPARIN SOD 5,000 UNIT/0.5 ML VIAL SQ SCH ×3 (05:39→21:05)
[2022-10-24] MEDS: LEVOTHYROXINE SODIUM 25 MCG TABLET PO SCH (05:39)
[2022-10-24 06:24] LABS: Basophils # (auto) 0.07 K/uL (0-0.2); Basophils % (auto) 0.8 %; Eosinophils % (auto) 1.1 %; Hemoglobin 9.4 g/dl (12.0-16.0); Immature Granulocytes # (auto) 0.17 K/uL (0.01-0.20); Immature Granulocytes % (auto) 1.8 %; Lymphocytes # (auto) 3.62 K/uL (1.2-3.4); Lymphocytes % (auto) 39.1 %; Mean Corpuscular Hemoglobin 24.8 pg (25.0-34.0); Mean Corpuscular Hgb Conc 31.3 g/dL (32.0-36.0); Mean Corpuscular Volume 79.2 fL (80.0-100.0); Mean Platelet Volume 10.7 fL (9.4-12.4); Monocytes # (auto) 0.77 K/uL (0.11-0.59); Monocytes % (auto) 8.3 %; Neutrophils # (auto) 4.54 K/uL (1.40-6.50); Neutrophils % (auto) 48.9 %; Nucleated RBC # (auto) 0.03 K/uL (0-0.12); Nucleated RBC % (auto) 0.3 %; Platelet Count 384 K/uL (130-400); RDW Coefficient of Variation 17.2 % (11.5-14.5); RDW Standard Deviation 48.9 fL (36.4-46.3); Red Blood Count 3.79 M/uL (4.20-5.40); White Blood Count 9.27 K/ul (4.8-10.8)
[2022-10-24 06:25] LABS: Calcium 9.4 mg/dl (8.6-10.3); Creatinine Clr Calc Pharmacy 24.4 ml/min; Est GFR (African American) 31.2 ml/min; Est GFR (Non-African American) 26.9 ml/min; Potassium 4.8 mmol/L (3.5-5.1)
[2022-10-24] MEDS: BUDESONIDE 0.25 MG/2 ML VIAL (PULMICORT) NEB SCH ×2 (07:02→19:44)
[2022-10-24] MEDS: SODIUM CHLOR 7% 4 ML NEB NEB SCH ×2 (07:02→19:45)
[2022-10-24] MEDS: FORMOTEROL 20 MCG/2 ML VIAL INH SCH ×2 (07:02→19:44)
[2022-10-24] MEDS: cefTRIAXone SODIUM 2,000 MG in DEXTROSE 5% 50 ML IV SCH (08:57)
--- NOTE | 2022-10-24 08:58 | Pulmonology Progress Note ---
Date of Service October 24, 2022 Assessment & Plan (1) Acute hypoxemic respiratory failure: (2) Abnormal chest CT: (3) Metastasis from breast cancer: (4) Shortness of breath: (5) Hypothyroidism: (6) Ex-smoker: Plan CT chest 10/23/2022 personally reviewed: Interlobular thickening appreciated bilaterally upper and lower lobes Multiple pulmonary nodules appreciated bilaterally Patchy groundglass opacity in the right upper lobe Mediastinal lymphadenopathy especially station 2R No pleural effusion ABG 10/23/2022: 7.40/38/80 on 2 L -- Acute hypoxic respiratory failure Etiology is likely the patient intake spread to the lungs There is a groundglass patchy opacity in the right upper lobe, atypical pneumonia can present this way SARS cov NAAT negative Respiratory bio fire negative for everything except entero/rhinovirus BNP 45 Procalcitonin 0.12 --Abnormal chest CT Interlobular thickening appreciated bilaterally upper and lower lobes with multiple pulmonary nodules Likely lymphangitic spread -- Ex-smoker Approximately 60-[id number] smoking history, quit in 2018 Given the wheezing appreciated on physical exam, patient likely has underlying COPD as well Continue with inhaled bronchodilators --New onset hypothyroidism TSH > 150 Management as per primary team --Metastatic breast CA --DNR/DNI Plan: Okay to continue with antibiotics to cover for atypical organisms Increase nebulized budesonide to 500 mcg twice daily Continue with Perforomist, hypertonic saline as well as Mucinex along with flutter valve BiPAP nightly and as needed shortness of breath Overall prognosis of the patient is poor. Palliative care consult would be recommended Please note the above document was generated using voice recognition software. It may contain grammatical, syntax or spelling errors.Any formal questions or concerns about the content, text or information contained within the body of this dictation should be directly addressed to the provider for clarification. Admission and Anticipated Discharge Date Admission Date: October 23, 2022 Subjective Patient seen and examined at bedside. No acute distress, no adverse events overnight She was saturating 97% on 2 L, I went down to 1 L. She denies any chest pain, did complain of some wheezing. No nausea vomiting Fair appetite No difficulty swallowing, no headache, no blurry vision Review of Systems Review of Systems: All systems reviewed & are unremarkable except as noted in Subjective Physical Exam Physical Exam: Constitutional: No acute distress HEENT: EOMI, PERRLA Respiratory system: Decreased air entry bilaterally, positive rhonchi, minimal expiratory wheeze, positive crackles bilateral lower lobes CVS: S1-S2 positive, no murmurs or gallops Abdomen: Soft, nontender, nondistended, positive bowel sounds x4 Extremities: +2 pulses bilaterally radialis/ dorsalis pedis, no cyanosis, +1 edema bilateral lower extremity Neuro: Awake alert oriented x3 Psych: Normal mood and affect G/U: No Byrnes Musculoskeletal: Left-sided breast mass appreciated Skin: no rashes, warm and dry Lymphatic: no cervical or axillary lymphadenopathy Results & Data Results & Data Vital Signs (Past 12 Hours) Vital Signs Temp Pulse Pulse Resp BP Pulse Ox O2 Del Method 10/24/22 07:46 36.5 C 90 20 116/72 95 Nasal Cannula 10/24/22 07:38 Nasal Cannula 10/24/22 07:05 98 H 20 96 Nasal Cannula 10/24/22 06:21 86 10/24/22 04:41 36.5 C 93 H 20 112/72 93 Nasal Cannula 10/24/22 01:36 89 10/24/22 01:32 Nasal Cannula 10/24/22 00:31 86 22 96 Nasal Cannula 10/23/22 23:00 36.5 C 86 20 110/72 96 Nasal Cannula O2 Flow Rate 10/24/22 07:46 2 10/24/22 07:38 2 10/24/22 07:05 3 10/24/22 06:21 10/24/22 04:41 2 10/24/22 01:36 10/24/22 01:32 2 10/24/22 00:31 3 10/23/22 23:00 2 Laboratory Results 10/24/22 05:43 10/24/22 05:43 PG Care Time/CCT Total # of Minutes Spent Total Time Spent with Patient: Total time spent is greater than 50% in coordination of care (as documented) at patient's floor/unit and/or counseling patient: Coding Level of Care Code 66953 SUB INP/OBS CARE 2/35MIN Diagnoses Acute hypoxemic respiratory failure J96.[address] R93.89 Metastasis from breast cancer C79.9; C50.919 Shortness of breath R06.02 Hypothyroidism E03.9 Ex-smoker Z87.891
[2022-10-24] MEDS: guaiFENesin 600 MG TABCR PO SCH ×2 (09:01→21:05)
[2022-10-24] MEDS: CEROVITE ADV FORMULA TAB PO SCH ×2 (09:02→21:05)
[2022-10-24] MEDS: UMECLIDINIUM BROMIDE 62.5MCG/BLISTER 7 PUFFS/INHALER INH SCH (09:02)
[2022-10-24] MEDS: predniSONE 20 MG TAB PO SCH (09:02)
[2022-10-24] MEDS: ASPIRIN 81 MG ECTAB PO SCH (09:05)
--- NOTE | 2022-10-24 16:15 | Hospitalist Progress Note ---
Date of Service October 24, 2022 Assessment & Plan (1) Acute hypoxemic respiratory failure: Plan: Secondary to recurrent bronchitis (probable underlying COPD) exacerbation Underlying lung parenchymal abnormalities CT chest from last month (diffuse bronchial thickening, diffuse metastatic disease with chest masses, probable lymphangitic spread), recent diagnosis breast cancer with lung mets -- Remains on 2 L of oxygen by nasal cannula --Continue ceftriaxone plus doxycycline IV day #2 Continue Xopenex/Atrovent, Pulmicort, formoterol -- Will need home oxygen supplement -- Appreciate pulmonology service recommendations Chronic kidney disease, stage 3CRI, creatinine at baseline chronic anemia, hemoglobin at baseline New diagnosis of hypothyroidism, TSH markedly elevated at 150, -- Levothyroxine 50 mcg started past tobacco abuse DVT prophylaxis. Heparin subcu DNR as per patient's prior wishes. Disposition Anticipate discharge to home when medically stable Will need oxygen supplement upon discharge to home Admission and Anticipated Discharge Date Admission Date: October 23, 2022 Subjective Follow-up for acute hypoxic respiratory failure, etc. Seen sitting up in bed, comfortable, not in distress, on 2 L of oxygen States she feels improved compared to yesterday Breathing continues to gradually improve Able to expectorate more phlegm No chest pain, palpitations, dizziness No fevers or chills, nausea or vomiting, abdominal pain No other symptoms Review of Systems Review of Systems: all noted and negative except for above Physical Exam Physical Exam: General- oriented x 3, not in distress, speaks in sentences with no effort or accessory muscle use Eyes- anicteric Neck- no JVD Lungs-mild scattered wheezing bilaterally, good air entry bilaterally Heart- normal rate, regular rhythm; no murmurs Abdomen- normal bowel sounds, nondistended, soft, nontender Extremities- no pretibial edema, no calf tenderness Neuro- alert, oriented x 3; no gross focal neurologic deficits Skin- warm & dry Results & Data Results & Data Vital Signs (Past 12 Hours) Vital Signs Temp Pulse Pulse Resp BP BP Pulse Ox 10/24/22 16:03 36.6 C 93 H 20 115/70 94 10/24/22 14:48 97 H 10/24/22 13:05 77 18 95 10/24/22 11:38 36.5 C 88 20 114/72 92 10/24/22 07:46 36.5 C 90 20 116/72 95 10/24/22 07:38 10/24/22 07:05 98 H 20 96 10/24/22 06:21 86 10/24/22 04:41 36.5 C 93 H 20 112/72 93 O2 Del Method O2 Flow Rate 10/24/22 16:03 Nasal Cannula 1 10/24/22 14:48 10/24/22 13:05 Nasal Cannula 3 10/24/22 11:38 Nasal Cannula 1 10/24/22 07:46 Nasal Cannula 2 10/24/22 07:38 Nasal Cannula 2 10/24/22 07:05 Nasal Cannula 3 10/24/22 06:21 10/24/22 04:41 Nasal Cannula 2 carlos manuel noted and reviewed including below
[2022-10-24] MEDS: DOXYCYCLINE HYCLATE 100 MG CAP PO SCH (21:05)
[2022-10-25] MEDS: HEPARIN SOD 5,000 UNIT/0.5 ML VIAL SQ SCH ×3 (06:05→20:18)
[2022-10-25] MEDS: LEVOTHYROXINE SODIUM 25 MCG TABLET PO SCH (06:05)
[2022-10-25] MEDS: FORMOTEROL 20 MCG/2 ML VIAL INH SCH ×2 (06:52→19:20)
[2022-10-25] MEDS: BUDESONIDE 0.25 MG/2 ML VIAL (PULMICORT) NEB SCH ×2 (06:52→19:20)
[2022-10-25] MEDS: LEVALBUTEROL 1.25MG/0.5ML NEB INH SCH ×3 (06:53→19:22)
[2022-10-25] MEDS: IPRATROPIUM BROMIDE NEB SOLN 0.02% 2.5 ML VIAL INH SCH ×3 (06:53→19:22)
[2022-10-25] MEDS: ASPIRIN 81 MG ECTAB PO SCH (08:45)
[2022-10-25] MEDS: cefTRIAXone SODIUM 2,000 MG in DEXTROSE 5% 50 ML IV SCH (08:45)
[2022-10-25] MEDS: DOXYCYCLINE HYCLATE 100 MG CAP PO SCH ×2 (08:46→20:18)
[2022-10-25] MEDS: guaiFENesin 600 MG TABCR PO SCH ×2 (08:46→20:18)
[2022-10-25] MEDS: CEROVITE ADV FORMULA TAB PO SCH ×2 (08:46→20:18)
[2022-10-25] MEDS: predniSONE 20 MG TAB PO SCH (08:47)
[2022-10-25] MEDS: UMECLIDINIUM BROMIDE 62.5MCG/BLISTER 7 PUFFS/INHALER INH SCH (08:47)
--- NOTE | 2022-10-25 09:41 | Pulmonology Progress Note ---
Date of Service October 25, 2022 Assessment & Plan (1) Acute hypoxemic respiratory failure: (2) Abnormal chest CT: (3) Metastasis from breast cancer: (4) Shortness of breath: (5) Hypothyroidism: (6) Ex-smoker: Plan CT chest 10/23/2022 personally reviewed: Interlobular thickening appreciated bilaterally upper and lower lobes Multiple pulmonary nodules appreciated bilaterally Patchy groundglass opacity in the right upper lobe Mediastinal lymphadenopathy especially station 2R No pleural effusion ABG 10/23/2022: 7.40/38/80 on 2 L -- Acute hypoxic respiratory failure Etiology is likely the patient intake spread to the lungs There is a groundglass patchy opacity in the right upper lobe, atypical pneumonia can present this way SARS cov NAAT negative Respiratory bio fire negative for everything except entero/rhinovirus BNP 45 Procalcitonin 0.12 --Abnormal chest CT Interlobular thickening appreciated bilaterally upper and lower lobes with multiple pulmonary nodules Likely lymphangitic spread -- Ex-smoker Approximately 18-[id number]-lcnh smoking history, quit in 2018 Given the wheezing appreciated on physical exam, patient likely has underlying COPD as well Continue with inhaled bronchodilators --New onset hypothyroidism TSH > 150 Management as per primary team --Metastatic breast CA --DNR/DNI Plan: Okay to continue with antibiotics to cover for atypical organisms for total of 5-7 days Continue with budesonide to 500 mcg, Perforomist, hypertonic saline as well as Mucinex along with flutter valve On discharge would recommend Symbicort 160-4.5 mcg, 2 puffs twice a day Mucinex as well as hypertonic saline will also be beneficial BiPAP nightly and as needed shortness of breath Overall prognosis of the patient is poor. Palliative care consult would be recommended No further recommendation for pulmonary perspective, will sign off Please call directly with any questions Case was discussed with Dr. Veronica Please note the above document was generated using voice recognition software. It may contain grammatical, syntax or spelling errors.Any formal questions or concerns about the content, text or information contained within the body of this dictation should be directly addressed to the provider for clarification. Admission and Anticipated Discharge Date Admission Date: October 23, 2022 Subjective Patient seen and examined at bedside. No acute distress, no adverse events overnight Saturating 94% on 1 L nasal cannula Denies any chest pain No headache, no blurry vision Has been afebrile Not coughing up anything. Denies any hemoptysis Review of Systems Review of Systems: All systems reviewed & are unremarkable except as noted in Subjective Physical Exam Physical Exam: Constitutional: No acute distress HEENT: EOMI, PERRLA Respiratory system: Decreased air entry bilaterally, no rhonchi, positive expira tory wheeze, positive crackles bilateral lower lobes CVS: S1-S2 positive, no murmurs or gallops Abdomen: Soft, nontender, nondistended, positive bowel sounds x4 Extremities: +2 pulses bilaterally radialis/ dorsalis pedis, no cyanosis, no edema Neuro: Awake alert oriented x3 Psych: Normal mood and affect G/U: No Byrnes Musculoskeletal: Left-sided breast mass appreciated Skin: no rashes, warm and dry Lymphatic: no cervical or axillary lymphadenopathy Results & Data Results & Data Vital Signs (Past 12 Hours) Vital Signs Temp Pulse Pulse Resp BP Pulse Ox O2 Del Method 10/25/22 09:28 Nasal Cannula 10/25/22 07:49 36.6 C 91 H 20 107/66 94 Nasal Cannula 10/25/22 06:01 87 10/25/22 06:53 84 18 97 Nasal Cannula 10/25/22 04:12 36.4 C L 97 H 20 98 Room Air 10/24/22 21:58 94 H 10/24/22 23:43 36.6 C 89 20 127/69 98 Nasal Cannula 10/24/22 23:16 Nasal Cannula 10/24/22 23:07 81 18 99 Nasal Cannula O2 Flow Rate 10/25/22 09:28 1 10/25/22 07:49 1 10/25/22 06:01 10/25/22 06:53 2 10/25/22 04:12 10/24/22 21:58 10/24/22 23:43 2 10/24/22 23:16 2 10/24/22 23:07 3 Laboratory Results 10/24/22 05:43 10/24/22 05:43 PG Care Time/CCT Total # of Minutes Spent Total Time Spent with Patient: Total time spent is greater than 50% in coordination of care (as documented) at patient's floor/unit and/or counseling patient: Coding Level of Care Code 64893 SUB INP/OBS CARE 2/35MIN Diagnoses Acute hypoxemic respiratory failure J96.[address] R93.89 Metastasis from breast cancer C79.9; C50.919 Shortness of breath R06.02 Hypothyroidism E03.9 Ex-smoker Z87.891
--- NOTE | 2022-10-25 11:25 | XRay Report ---
XR chest 1V portable CLINICAL HISTORY: Follow up study. Breast cancer. Shortness of breath. COMPARISON STUDY: Chest radiograph and chest CT October 23, 2022. FINDINGS: There is no pneumothorax or pleural effusion. Reticulonodular interstitial thickening is si milar to prior exam. S1 is stable. Mediastinal lymphadenopathy is better depicted on prior chest CT. There is no pneumothorax. Trace bilateral pleural effusions. IMPRESSION: 1. 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 2. Trace bilateral pleural effusions. No pneumothorax. 3. No consolidation to suggest pneumonia. ACT 112: Negative or not required by law. Electronically signed by: Manpreet Edward M.D. 10/25/2022 11:24 AM
--- NOTE | 2022-10-25 18:21 | Hospitalist Progress Note ---
Date of Service October 25, 2022 Assessment & Plan (1) Acute hypoxemic respiratory failure: Plan: Secondary to recurrent bronchitis (probable underlying COPD) exacerbation Underlying lung parenchymal abnormalities CT chest from last month (diffuse bronchial thickening, diffuse metastatic disease with chest masses, probable lymphangitic spread), recent diagnosis breast cancer with lung mets --Gradually improving -- Remains on 2 L of oxygen by nasal cannula --Continue ceftriaxone plus doxycycline IV day #3 Continue prednisone 20 mg p.o. daily Continue Xopenex/Atrovent, Pulmicort, formoterol -- Will need home oxygen supplement -- Appreciate pulmonology service recommendations Chronic kidney disease, stage 3CRI, creatinine at baseline chronic anemia, hemoglobin at baseline New diagnosis of hypothyroidism, TSH markedly elevated at 150, -- Levothyroxine 50 mcg started past tobacco abuse DVT prophylaxis. Heparin subcu DNR as per patient's prior wishes. Disposition Anticipate discharge to home when medically stable Will need oxygen supplement upon discharge to home Admission and Anticipated Discharge Date Admission Date: October 23, 2022 Subjective Follow-up for respiratory failure, pneumonia, etc. Seen resting in bed, comfortable, not in distress, on 2 L of oxygen States breathing continues to improve Able to expectorate more phlegm No chest pain No dizziness No fevers or chills No any other symptom Review of Systems Review of Systems: all noted and negative except for above Physical Exam Physical Exam: General- oriented x 3, not in distress, speaks in sentences with no effort or accessory muscle use Eyes- anicteric Neck- no JVD Lungs-faint scattered wheezes bilaterally, good air entry bilaterally Heart- normal rate, regular rhythm; no murmurs Abdomen- normal bowel sounds, nondistended, soft, nontender Extremities- no pretibial edema, no calf tenderness Neuro- alert, oriented x 3; no gross focal neurologic deficits Skin- warm & dry Results & Data Results & Data Vital Signs (Past 12 Hours) Vital Signs Temp Pulse Pulse Resp BP BP Pulse Ox 10/25/22 16:28 36.6 C 101 H 22 120/73 94 10/25/22 14:02 96 H 10/25/22 13:10 68 18 97 10/25/22 12:00 36.5 C 59 L 20 125/76 98 10/25/22 09:28 10/25/22 07:49 36.6 C 91 H 20 107/66 94 10/25/22 06:53 84 18 97 O2 Del Method O2 Flow Rate 10/25/22 16:28 Nasal Cannula 1 10/25/22 14:02 10/25/22 13:10 Nasal Cannula 2 10/25/22 12:00 Nasal Cannula 2 10/25/22 09:28 Nasal Cannula 1 10/25/22 07:49 Nasal Cannula 1 10/25/22 06:53 Nasal Cannula 2 all noted and reviewed including below
[2022-10-25] MEDS ORDERED: LEVALBUTEROL 1.25 MG/3 ML NEB ONE (19:17)
[2022-10-26] MEDS: LEVALBUTEROL 1.25MG/0.5ML NEB INH SCH ×3 (00:11→13:46)
[2022-10-26] MEDS: IPRATROPIUM BROMIDE NEB SOLN 0.02% 2.5 ML VIAL INH SCH ×3 (00:11→13:46)
[2022-10-26] MEDS: LEVOTHYROXINE SODIUM 25 MCG TABLET PO SCH (05:52)
[2022-10-26] MEDS: HEPARIN SOD 5,000 UNIT/0.5 ML VIAL SQ SCH ×2 (05:53→14:45)
[2022-10-26] MEDS: FORMOTEROL 20 MCG/2 ML VIAL INH SCH (07:08)
[2022-10-26] MEDS: BUDESONIDE 0.25 MG/2 ML VIAL (PULMICORT) NEB SCH (07:08)
[2022-10-26] MEDS: DOXYCYCLINE HYCLATE 100 MG CAP PO SCH (08:16)
[2022-10-26] MEDS: guaiFENesin 600 MG TABCR PO SCH (08:16)
[2022-10-26] MEDS: ASPIRIN 81 MG ECTAB PO SCH (08:16)
[2022-10-26] MEDS: cefTRIAXone SODIUM 2,000 MG in DEXTROSE 5% 50 ML IV SCH (08:16)
[2022-10-26] MEDS: CEROVITE ADV FORMULA TAB PO SCH (08:16)
[2022-10-26] MEDS: predniSONE 20 MG TAB PO SCH (08:16)
[2022-10-26] MEDS: UMECLIDINIUM BROMIDE 62.5MCG/BLISTER 7 PUFFS/INHALER INH SCH (09:41)
--- NOTE | 2022-10-26 11:22 | Hospitalist Progress Note ---
Date of Service October 26, 2022 Assessment & Plan (1) Acute hypoxemic respiratory failure: Plan: Acute hypoxemic respiratory failure: Plan: Secondary to recurrent bronchitis (probable underlying COPD) exacerbation Underlying lung parenchymal abnormalities CT chest from last month (diffuse bronchial thickening, diffuse metastatic disease with chest masses, probable lymphangitic spread), recent diagnosis breast cancer with lung mets -- significantly improved -- Remains on 2 L of oxygen by nasal cannula -- on ceftriaxone plus doxycycline IV day #4--> transition to Cefdinir + Doxycycline x 6 more days to complete 10 day course Continue prednisone 20 mg p.o. daily x 2 more days, then STOP given Xopenex/Atrovent, Pulmicort, formoterol--> transition to Symbicort 160/4.5mcg 2 puffs BID, Incruse Ellipta, PRN Xopenex -- Will need home oxygen supplement -- Appreciate pulmonology service recommendations - the patient has a medical condition which requires positioning of the the body in ways not feasible with ordinary bed Chronic kidney disease, stage 3CRI, creatinine at baseline chronic anemia, hemoglobin at baseline New diagnosis of hypothyroidism, TSH markedly elevated at 150, -- Levothyroxine 50 mcg started - repeat TFT in 4-6 weeks past tobacco abuse DVT prophylaxis. Heparin subcu given DNR as per patient's prior wishes. Disposition d/c home today ff up with PCP in 1 week ff up with Palliative Care [facility] plan of care discussed with patient in detail and at length all questions answered she is understanding, agreeable, comfortable with the plan of care Admission and Anticipated Discharge Date Admission Date: October 23, 2022 Subjective ff up for pneumonia, etc Seen resting in bed, comfortable, on 2 L of oxygen via nasal cannula States she feels much better overall Breathing is improving, less cough, no chest pain, fevers or chills No other new symptoms States she is ready for discharge today Review of Systems Review of Systems: all noted and negative except for above Physical Exam Physical Exam: General- oriented x 2, not in distress, speaks in sentences with no effort or accessory muscle use Eyes- anicteric Neck- no JVD Lungs- mild rhonchi at the bases no other symptom Heart- normal rate, regular rhythm; no murmurs Abdomen- normal bowel sounds, nondistended, soft, no tenderness Extremities- no pretibial edema, no calf tenderness Neuro- alert, oriented x 3; no gross focal neurologic deficits Skin- warm & dry Results & Data Results & Data Vital Signs (Past 12 Hours) Vital Signs Temp Pulse Pulse Resp BP BP Pulse Ox 10/26/22 08:43 90 10/26/22 07:44 36.7 C 98 H 16 121/73 96 10/26/22 07:25 10/26/22 07:08 102 H 20 96 10/26/22 03:15 36.6 C 102 H 20 105/66 94 10/26/22 03:02 91 H 10/26/22 00:11 76 18 94 10/25/22 23:36 36.9 C 102 H 20 116/72 95 O2 Del Method O2 Flow Rate 10/26/22 08:43 10/26/22 07:44 Nasal Cannula 2 10/26/22 07:25 Nasal Cannula 1 10/26/22 07:08 Nasal Cannula 2 10/26/22 03:15 Nasal Cannula 2 10/26/22 03:02 10/26/22 00:11 Nasal Cannula 2 10/25/22 23:36 Nasal Cannula 2 all noted and reviewed including below
[2022-10-26] MEDS ORDERED: LEVALBUTEROL 1.25 MG/3 ML NEB ONE (13:41)
== END 2022-10-26 17:44 | disposition home health service (06) | DRG 189 ==
LOC: ED 23:20 → EDINP 10-23 02:51 → 2N 10-23 17:25

== ENCOUNTER 2022-11-04 02:28 | Inpatient (IN) ==
[2022-11-04] MEDS ORDERED: methylPREDNISolone 125 MG/2 ML VIAL IV STA (02:48)
[2022-11-04] MEDS ORDERED: ALBUT/IPRATROP 3MG/0.5MG NEB 3 ML VIAL INH STA (02:48)
--- NOTE | 2022-11-04 02:51 | Emergency Department Note ---
History of Present Illness General Chief complaint: Shortness of Breath/Dyspnea Stated complaint: SOB,COUGHING Time Seen by Provider: 11/04/22 02:35 History of Present Illness This 67-year-old female with recently diagnosed metastatic breast carcinoma to the lung going to start hospice today presents to the ER for worsening shortness of breath. She is chronically on 3 L. Breathing is getting worse. Patient denies chest pain, fever, chills, flulike illness. She states she would like help breathing. She is not currently doing chemo or radiation. Home Medications Medication Instructions Recorded Confirmed Type albuterol sulfate 90 mcg/actuation 2 puff inhalation DIRECTED PRN 10/22/22 11/04/22 History aerosol inhaler Shortness Of Breath Or Wheezing aspirin 81 mg tablet,delayed 81 mg PO DAILY 10/22/22 11/04/22 History release vit C 250 mg-vit E 90 mg-zinc 40 1 tab PO BID 10/22/22 11/04/22 History mg-copper 1 [id number] capsule (PreserVision AREDS-2) budesonide-formoterol HFA 160 2 inh inhalation BID 30 days #10.2 10/26/22 11/04/22 Rx mcg-4.5 mcg/actuation aerosol grams inhaler (Symbicort) ipratropium bromide 0.02 % 0.5 mg (2.5 mL) inhalation Q4H PRN 10/26/22 11/04/22 Rx solution for inhalation shortness of breath/wheezing 30 days #75 mL levalbuterol HCl 1.25 mg/0.5 mL 1.25 mg (0.5 mL) inhalation Q4H 10/26/22 11/04/22 Rx solution for nebulization PRN shortness of breath or wheezing 30 days #30 ea levothyroxine 25 mcg tablet 25 mcg PO DAILYBB 30 days #30 tabs 10/26/22 11/04/22 Rx (Synthroid) umeclidinium 62.5 mcg/actuation 1 inh inhalation DAILY 30 days #30 10/26/22 11/04/22 Rx blister powder for inhalation ea (Incruse Ellipta) Allergies Allergy/AdvReac Type Severity Reaction Status Date / Time Nitrate Analogues Allergy Intermediate ITCHING Verified 11/04/22 02:47 nitrofurantoin Allergy Intermediate ITCHING Verified 11/04/22 02:47 scopolamine Allergy Unknown Unknown Verified 11/04/22 02:47 Past Med/Surg History Social History Smoking Status: Never smoker Second Hand Exposure: No; Do You Dip or Chew Tobacco: No; Hx Alcohol Use: No Hx Substance Use: No Preferred Language: Bulgarian Communication Ability: Effective Filer And Sander Required: No Beliefs That Will Affect Care: None Current Living Situation: Family Current Living Situation Comment: lives with sister Feels Safe at Home: Yes Assistive Devices: None Review of Systems A total of 10 systems reviewed and were otherwise negative Physical Exam Vital Signs Vital Signs - 24 hr 11/04/22 02:32 11/04/22 02:32 11/04/22 03:33 Temperature 36.8 C Temperature Source Temporal Artery Scan Pulse Rate 118 H 114 H Pulse Rate from SpO2 Sensor Respiratory Rate 20 22 Respiratory Effort / Characteristics Non-Labored Spontaneous Respiratory Depth Normal Blood Pressure 100/60 Blood Pressure Mean 73 Pulse Oximetry 94 95 95 Oxygen Delivery Method Nasal Cannula Nasal Cannula Nasal Cannula Oxygen Flow Rate 3 3 3 Sepsis Recent Fever Within 48 Hours No Sepsis New/Unexplained Change in Mental Status N/A Sepsis Action Taken by Nursing No Action Required 11/04/22 03:57 11/04/22 03:55 11/04/22 04:00 Temperature Temperature Source Pulse Rate 117 H 117 H Pulse Rate from SpO2 Sensor 117 H Respiratory Rate 20 Respiratory Effort / Characteristics Respiratory Depth Blood Pressure 144/81 H Blood Pressure Mean 102 Pulse Oximetry 89 L Oxygen Delivery Method Oxygen Flow Rate Sepsis Recent Fever Within 48 Hours Sepsis New/Unexplained Change in Mental Status Sepsis Action Taken by Nursing 11/04/22 04:00 11/04/22 04:30 11/04/22 04:30 Temperature Temperature Source Pulse Rate 117 H 115 H Pulse Rate from SpO2 Sensor 117 H 115 H Respiratory Rate 17 16 Respiratory Effort / Characteristics Respiratory Depth Blood Pressure 158/84 H Blood Pressure Mean 108 Pulse Oximetry 92 98 Oxygen Delivery Method Oxygen Flow Rate Sepsis Recent Fever Within 48 Hours Sepsis New/Unexplained Change in Mental Status Sepsis Action Taken by Nursing 11/04/22 05:00 11/04/22 05:00 Temperature Temperature Source Pulse Rate 122 H Pulse Rate from SpO2 Sensor 122 H Respiratory Rate 15 Respiratory Effort / Characteristics Respiratory Depth Blood Pressure 148/82 H Blood Pressure Mean 104 Pulse Oximetry 92 Oxygen Delivery Method Oxygen Flow Rate Sepsis Recent Fever Within 48 Hours Sepsis New/Unexplained Change in Mental Status Sepsis Action Taken by Nursing VITALS: Vitals are noted on the nurse's note and reviewed by myself. Vital signs reviewed. GENERAL: Pleasant female who appears short of breath, in no acute distress, nondiaphoretic, well-developed well-nourished. SKIN: The skin was without rashes, erythema, edema, or bruising. There is no tenting of the skin. Capillary reflex less than 2 seconds. HEAD: Normocephalic atraumatic. EARS: External auditory canals clear, tympanic membranes pearly taylor without erythema or effusion bilaterally. EYES: Pupils equal round and reactive to light and accommodation. Conjunctivae without injection, sclerae without icterus. Extraocular movements intact. NOSE: Patent, turbinates without inflammation or discharge. MOUTH: Mucous membranes moist. Pharynx without erythema or exudate. Uvula midline. Airway patent. Tongue does not deviate. NECK: Supple without nuchal rigidity. No lymphadenopathy. No thyromegaly. Cervical spine is nontender. No JVD. HEART: Regular rate and rhythm LUNGS: Diffuse inspiratory and end expiratory wheezes. No retractions or access ory muscle use. ABDOMEN: Positive bowel sounds x 4. Normal tympanic percussion. Soft, nontender, without masses or organomegaly. Traore sign negative. No guarding or rebound tenderness. No CVA tenderness MUSCULOSKELETAL: No muscle atrophy, erythema, or edema noted. NEURO: Patient was alert and oriented to person place and time. Normal sensation to light and sharp touch. No focal neurological deficits. Course Administered Medications Heparin Sodium/Dextrose (Heparin Sodium/Dextrose) 25,000 units in 500 mls @ 20 mls/hr IV .Q24H [facility]; Protocol Stop: 12/04/22 04:29 Last Admin: 11/04/22 04:49 Dose: 1,000 units/hr, 20 mls/hr Documented By: WASHINGTON Co-signed By: CHANTELL Discontinued Medications Albuterol (Albut/Ipratrop 3mg/0.5mg Neb 3 Ml Vial) 3 ml INH NOW STA Stop: 11/04/22 02:49 Last Admin: 11/04/22 03:02 Dose: 3 ml Documented By: LIZZ Albuterol (Albut/Ipratrop 3mg/0.5mg Neb 3 Ml Vial) 3 ml NEB NOW STA; Protocol Stop: 11/04/22 04:13 Last Admin: 11/04/22 04:28 Dose: 3 ml Documented By: WASHINGTON Heparin Sodium (Porcine) (Heparin Sod (Porcine) 1000 Unit/Ml) 4,000 units IV NOW STA Stop: 11/04/22 04:37 Last Admin: 11/04/22 04:49 Dose: 4,000 units Documented By: WASHINGTON Co-signed By: CHANTELL Magnesium Sulfate/Dextrose (Magnesium Sulfate / D5w) 1 gm in 100 mls @ 600 mls/hr IV Q10M SHEREEN Stop: 11/04/22 03:47 Last Infusion: 11/04/22 04:33 Dose: 0 mls/hr Documented By: Admin: 11/04/22 04:08 Dose: 600 mls/hr Documented By: Infusion: 11/04/22 03:56 Dose: 600 mls/hr Documented By: Admin: 11/04/22 03:45 Dose: 600 mls/hr Documented By: WASHINGTON Sodium Chloride (Nss 1000ml) 500 mls @ 999 mls/hr IV .Q31M ONE Stop: 11/04/22 04:05 Last Infusion: 11/04/22 04:33 Dose: 0 mls/hr Documented By: Admin: 11/04/22 03:59 Dose: 999 mls/hr Documented By: WASHINGTON Ioversol (Optiray 320 500ml) 125 ml IV ONCE ONE Stop: 11/04/22 03:46 Last Admin: 11/04/22 03:45 Dose: 85 ml Documented By: NOEMY Methylprednisolone (Methylprednisolone 125 Mg/2 Ml Vial) 125 mg IV NOW STA Stop: 11/04/22 02:49 Last Admin: 11/04/22 03:01 Dose: 125 mg Documented By: LIZZ Critical Care Time Critical Care Time: Yes Total Critical Care Time: 35 I have personally spent 35 minutes of critical care time in the direct management of this patient. This includes bedside care, interpretation of diagnostic studies, and testing, discussion with consultants, patient, and family members, and other required patient management activities. This 35 minutes is in excess of all separately billable procedures. Medical Decision Making Medical Records Attestation: I reviewed the patient's medical records. Home Medications Current Medication List: was personally reviewed by me Laboratory Data Attestation: I reviewed the patient's lab results. 11/04/22 02:47 11/04/22 02:47 Lab Results 11/04/22 11/04/22 11/04/22 Range/Units 02:47 02:47 02:47 WBC 8.47 (4.8-10.8) K/ul RBC 3.84 L (4.20-5.40) M/uL Hgb 9.7 L (12.0-16.0) g/dl Hct 30.7 L (37.0-47.0) % MCV 79.9 L (80.0-100.0) fL MCH 25.3 (25.0-34.0) pg MCHC 31.6 L (32.0-36.0) g/dL RDW Std Deviation 50.7 H (36.4-46.3) fL RDW Coeff of Vero 17.6 H (11.5-14.5) % Plt Count 324 (130-400) K/uL MPV 11.0 (9.4-12.4) fL Immature Gran % (Auto) 2.5 % Neut % (Auto) 54.2 % Lymph % (Auto) 34.4 % [place] % (Auto) 6.5 % Eos % (Auto) 1.7 % Baso % (Auto) 0.7 % Neut # (Auto) 4.60 (1.40-6.50) K/uL Lymph # (Auto) 2.91 (1.2-3.4) K/uL [place] # (Auto) 0.55 (0.11-0.59) K/uL Eos # (Auto) 0.14 (0-0.50) K/uL Baso # (Auto) 0.06 (0-0.2) K/uL Immature Gran # (Auto) 0.21 H (0.01-0.20) K/uL Absolute Nucleated RBC 0.03 (0-0.12) K/uL Nucleated RBC % (auto) 0.4 % PT 10.8 (9.0-12.0) Seconds INR 1.0 (0.9-1.1) APTT 25.9 (21.0-31.0) Seconds PTT Ratio 0.9 Sodium 138 (136-145) mmol/L Potassium 4.8 (3.5-5.1) mmol/L Chloride 105 (98-107) mmol/L Carbon Dioxide 23 (21-32) mmol/L Anion Gap 10 (3-11) BUN 26 H (6-23) mg/dl Creatinine 1.39 H (0.6-1.2) mg/dl Est Cr Clr Drug Dosing Not Reportable Est GFR ( Amer) 44.7 ml/min Est GFR (Non-Af Amer) 38.6 ml/min BUN/Creatinine Ratio 18.7 (10-20) Glucose 108 H (70-99(Fasting)) mg/dl Calcium 9.7 (8.6-10.3) mg/dl Total Bilirubin 0.3 (0.2-1.0) mg/dl AST 116 H (13-39) U/L ALT 85 H (7-52) U/L Alkaline Phosphatase 347 H (34-104) U/L Troponin I High Sens 12.1 (0-14) pg/ml B-Natriuretic Peptide (0-100) pg/ml Total Protein 6.7 (6.0-8.3) gm/dl Albumin 3.6 (3.4-5.0) gm/dl Globulin 3.1 (2.5-4.0) gm/dl Albumin/Globulin Ratio 1.2 (0.9-2) SARS-CoV-2, RNA, NAAT (NEGATIVE) 11/04/22 11/04/22 Range/Units 03:10 04:52 WBC (4.8-10.8) K/ul RBC (4.20-5.40) M/uL Hgb (12.0-16.0) g/dl Hct (37.0-47.0) % MCV (80.0-100.0) fL MCH (25.0-34.0) pg MCHC (32.0-36.0) g/dL RDW Std Deviation (36.4-46.3) fL RDW Coeff of Vero (11.5-14.5) % Plt Count (130-400) K/uL MPV (9.4-12.4) fL Immature Gran % (Auto) % Neut % (Auto) % Lymph % (Auto) % [place] % (Auto) % Eos % (Auto) % Baso % (Auto) % Neut # (Auto) (1.40-6.50) K/uL Lymph # (Auto) (1.2-3.4) K/uL [place] # (Auto) (0.11-0.59) K/uL Eos # (Auto) (0-0.50) K/uL Baso # (Auto) (0-0.2) K/uL Immature Gran # (Auto) (0.01-0.20) K/uL Absolute Nucleated RBC (0-0.12) K/uL Nucleated RBC % (auto) % PT (9.0-12.0) Seconds INR (0.9-1.1) APTT (21.0-31.0) Seconds PTT Ratio Sodium (136-145) mmol/L Potassium (3.5-5.1) mmol/L Chloride (98-107) mmol/L Carbon Dioxide (21-32) mmol/L Anion Gap (3-11) BUN (6-23) mg/dl Creatinine (0.6-1.2) mg/dl Est Cr Clr Drug Dosing Est GFR ( Amer) ml/min Est GFR (Non-Af Amer) ml/min BUN/Creatinine Ratio (10-20) Glucose (70-99(Fasting)) mg/dl Calcium (8.6-10.3) mg/dl Total Bilirubin (0.2-1.0) mg/dl AST (13-39) U/L ALT (7-52) U/L Alkaline Phosphatase (34-104) U/L Troponin I High Sens (0-14) pg/ml B-Natriuretic Peptide 77 (0-100) pg/ml Total Protein (6.0-8.3) gm/dl Albumin (3.4-5.0) gm/dl Globulin (2.5-4.0) gm/dl Albumin/Globulin Ratio (0.9-2) SARS-CoV-2, RNA, NAAT NEGATIVE (NEGATIVE) Imaging Data Attestation: I personally reviewed and interpreted this imaging study as follows: Radiologist's Impression: Chest CTA 11/04/22 02:48 CR Exam(s): CTA CHEST IV Amt: 85 ml optiray 320 EXAM: CT Angiography Chest With Intravenous Contrast CLINICAL HISTORY: Reason for exam: Dyspnea. TECHNIQUE: Axial computed tomographic angiography images of the chest with intravenous contrast. CTDI is 25.23 mGy and DLP is 344 mGy-cm. Automated exposure control was utilized for the study. A dose lowering technique was utilized adhering to the principles of ALARA. MIP reconstructed images were created and reviewed. COMPARISON: 10/23/2022 FINDINGS: Pulmonary arteries: Suboptimal opacification of the distal pulmonary arteries. There is at least 1 segmental/subsegmental PE in the left lower lobe. No convincing evidence of right heart strain. Aorta: No acute findings.. Normal caliber. No dissection. Lungs: Extensive interstitial and airspace opacities favored to represent pulmonary edema. Pleural space: Unremarkable. Heart: Unremarkable. Bones/joints: No acute fracture. Soft tissues: Unremarkable. Lymph nodes: Similar-appearing poorly circumscribed soft tissue mass in the left chest wall suspicious for malignancy. Enlarged left axillary lymph nodes. Metastatic-appearing prevascular and paratracheal lymph nodes. IMPRESSION: 1. Suboptimal opacification of the distal pulmonary arteries. There is at least 1 segmental/subsegmental PE in the left lower lobe. No convincing evidence of right heart strain. 2. Extensive interstitial and airspace opacities favored to represent pulmonary edema. A component of infection could also be present in the appropriate clinical setting. 3. Similar-appearing poorly circumscribed soft tissue mass in the left chest wall suspicious for malignancy. Enlarged left axillary lymph nodes. 4. Metastatic-appearing prevascular and paratracheal lymph nodes. Communications: Verify Receipt Electronically signed by: Cody Franco MD 11/04/22 04:[address] [facility] Narrative Prior records/ancillary studies reviewed. Triage Nursing notes reviewed. Additional history obtained from the family. The patient's history was concerning for respiratory difficulties. Differential diagnosis: Etiologies such as progression of cancer, infections, reactive airway disease, pneumonia, pneumothorax, COPD, CHF, cardiac ischemia, pulmonary embolism, musculoskeletal, gastrointestinal, as well as others were entertained. Physical examination: As above. ER treatment provided: An order was placed for continuous cardiac monitoring. The monitor shows a rate of 60-1 50 with a sinus rhythm per my interpretation. Nebulizer, steroids, magnesium, IV fluids Heparin with bolus On reassessment the patient felt better. Diagnostic interpretation by me: The electrocardiogram was ordered for SOB. ECG: Normal sinus, normal normals, no acute ST-T wave changes, Q waves in the inferior leads. Impression sinus tachycardia rate 114 independently interpreted by myself I think arrhythmia is unlikely. EKG shows normal sinus rhythm with no interval abnormalities such as QT prolongation or WPW. There are no findings to suggest Brugada syndrome. Cardiac monitoring in the emergency department reveals no tachycardic or bradycardic dysrhythmia. Hypertrophic cardiomyopathy was considered but there are no clear historical elements pointing toward this. EKG is not suggestive. The QRS voltage is not extremely large The labs Independently Interpreted by myself revealed anemia, worsening liver functions. Creatinine 1.39 Negative troponin. BNP 77. Coags were ordered Imaging studies: Chest x-ray worsening metastases without free air per my independent i nterpretation CT was reviewed and read by radiology as above. Consultation: A consultation was placed with the hospitalist. The case was discussed and diagnostics were reviewed. The patient was evaluated in the ER for further treatment. This appears to be consistent with progression of metastatic carcinoma with pulmonary embolism. Patient had no signs or symptoms of pneumonia. I did disc uss this with the admitting team and would like to defer antibiotics now and start on heparin with bolus.Labs and diagnostics were independently interpreted by myself. Patient is agreeable with treatment plan of admission. Case discussed with the admission team and patient was admitted to their service. By the evaluation outlined above emergent etiologies such as cardiac ischemia, reactive airway disease, pneumothorax, musculoskeletal, serious bacterial infections, as well as others were deemed relatively unlikely. The pt informed about the findings as listed above. All questions were answered and pleased with the treatment. The chart was completed utilizing S[employer] Speech voice recognition software. Grammatical errors, random word insertions, pronoun errors, and incomplete s entences are an occassional consequence of this system due to software limitations, ambient noise, and hardware issues. Any formal questions or concerns about the content, text, or information contained within the body of this dictation should be directly addressed to the physician assistant professor of english for cl arification. Impression & Plan Pulmonary embolism, Shortness of breath, Metastasis from breast cancer, Abnormal chest CT Discharge Plan Visit Data Chief Complaint: Shortness of Breath/Dyspnea Stated Complaint: SOB,COUGHING ED Provider: Azra Dove ED Midlevel Provider: Angie Grayson Discharge Problem: Pulmonary embolism, Shortness of breath, Metastasis from breast cancer, Abnormal chest CT Patient Disposition: Admitted As Inpatient Condition: Fair Forms Stand Alone Forms: My [facility] Incipient Prescriptions Prescriptions: No Action aspirin 81 mg Tablet,Delayed Release (Dr/Ec) 81 mg PO DAILY albuterol sulfate 90 mcg/actuation HFA aerosol inhaler 2 puff INHALATION DIRECTED PRN (Reason: Shortness Of Breath Or Wheezing) PreserVision AREDS-2 250-90-40-1 mg Capsule 1 tab PO BID ipratropium bromide 0.02 % Solution 0.5 mg inhalation Q4H PRN (Reason: shortness of breath/wheezing) 30 Days Qty: 75 1RF levalbuterol HCl 1.25 mg/0.5 mL Solution For Nebulization 1.25 mg inhalation Q4H PRN (Reason: shortness of breath or wheezing) 30 Days Qty: 30 1RF Incruse Ellipta 62.5 mcg/actuation Blister With Device 1 inh inhalation DAILY 30 Days Qty: 30 1RF budesonide-formoterol [Symbicort] 160-4.5 mcg/actuation HFA aerosol inhaler 2 inh inhalation BID 30 Days Qty: 10.2 1RF levothyroxine [Synthroid] 25 mcg Tablet 25 mcg PO DAILYBB 30 Days Qty: 30 0RF Referrals Referrals: Van Aquino DO [Primary Care Provider] - Pulmonary embolism Qualifiers: Pulmonary embolism type: unspecified Chronicity: acute Acute cor pulmonale presence: without acute cor pulmonale Qualified Code(s): I26.99 - Other pulmonary embolism without acute cor pulmonale
[2022-11-04 03:17] LABS: Basophils # (auto) 0.06 K/uL (0-0.2); Basophils % (auto) 0.7 %; Eosinophils # (auto) 0.14 K/uL (0-0.50); Eosinophils % (auto) 1.7 %; Hematocrit (blood only) 30.7 % (37.0-47.0); Hemoglobin 9.7 g/dl (12.0-16.0); Immature Granulocytes # (auto) 0.21 K/uL (0.01-0.20); Immature Granulocytes % (auto) 2.5 %; Lymphocytes # (auto) 2.91 K/uL (1.2-3.4); Lymphocytes % (auto) 34.4 %; Mean Corpuscular Hemoglobin 25.3 pg (25.0-34.0); Mean Corpuscular Hgb Conc 31.6 g/dL (32.0-36.0); Mean Corpuscular Volume 79.9 fL (80.0-100.0); Monocytes # (auto) 0.55 K/uL (0.11-0.59); Monocytes % (auto) 6.5 %; Neutrophils % (auto) 54.2 %; Nucleated RBC # (auto) 0.03 K/uL (0-0.12); Nucleated RBC % (auto) 0.4 %; Platelet Count 324 K/uL (130-400); RDW Coefficient of Variation 17.6 % (11.5-14.5); RDW Standard Deviation 50.7 fL (36.4-46.3); Red Blood Count 3.84 M/uL (4.20-5.40); White Blood Count 8.47 K/ul (4.8-10.8)
[2022-11-04 03:27] LABS: Alanine Aminotransferase 85 U/L (7-52); Albumin Globulin Ratio 1.2 (0.9-2); Albumin Level 3.6 gm/dl (3.4-5.0); Alkaline Phosphatase 347 U/L (34-104); Anion Gap 10 (3-11); Aspartate Aminotransferase 116 U/L (13-39); BUN Creatinine Ratio 18.7 (10-20); Bilirubin,Total 0.3 mg/dl (0.2-1.0); Blood Urea Nitrogen 26 mg/dl (6-23); Calcium 9.7 mg/dl (8.6-10.3); Carbon Dioxide 23 mmol/L (21-32); Chloride 105 mmol/L (98-107); Est GFR (African American) 44.7 ml/min; Est GFR (Non-African American) 38.6 ml/min; Globulin 3.1 gm/dl (2.5-4.0); Glucose 108 mg/dl (70-99(Fasting)); Potassium 4.8 mmol/L (3.5-5.1); Sodium 138 mmol/L (136-145); Total Protein 6.7 gm/dl (6.0-8.3)
[2022-11-04 03:33] LABS: Troponin I High Sensitivity 12.1 pg/ml (0-14)
[2022-11-04] MEDS ORDERED: SODIUM CHLORIDE 0.9% 1000ML 500 ML IV ONE (03:35)
[2022-11-04] MEDS ORDERED: OPTIRAY 320 500ml IV ONE (03:45)
[2022-11-04] MEDS: MAGNESIUM SULFATE / D5W 1 GM/100 ML BAG IV SCH ×2 (03:45→04:08)
--- NOTE | 2022-11-04 04:02 | CT Scan Report ---
Exam(s): CTA CHEST IV Amt: 85 ml optiray 320 EXAM: CT Angiography Chest With Intravenous Contrast CLINICAL HISTORY: Reason for exam: Dyspnea. TECHNIQUE: Axial computed tomographic angiography images of the chest with intravenous contrast. CTDI is 25.23 mGy and DLP is 344 mGy-cm. Automated exposure control was utilized for the study. A dose lowering technique was utilized adhering to the principles of ALARA. MIP reconstructed images were created and reviewed. COMPARISON: 10/23/2022 FINDINGS: Pulmonary arteries: Suboptimal opacification of the distal pulmonary arteries. There is at least 1 segmental/subsegmental PE in the left lower lobe. No convincing evidence of right heart strain. Aorta: No acute findings.. Normal caliber. No dissection. Lungs: Extensive interstitial and airspace opacities favored to represent pulmonary edema. Pleural space: Unremarkable. Heart: Unremarkable. Bones/joints: No acute fracture. Soft tissues: Unremarkable. Lymph nodes: Similar-appearing poorly circumscribed soft tissue mass in the left chest wall suspicious for malignancy. Enlarged left axillary lymph nodes. Metastatic-appearing prevascular and paratracheal lymph nodes. IMPRESSION: 1. Suboptimal opacification of the distal pulmonary arteries. There is at least 1 segmental/subsegmental PE in the left lower lobe. No convincing evidence of right heart strain. 2. Extensive interstitial and airspace opacities favored to represent pulmonary edema. A component of infection could also be present in the appropriate clinical setting. 3. Similar-appearing poorly circumscribed soft tissue mass in the left chest wall suspicious for malignancy. Enlarged left axillary lymph nodes. 4. Metastatic-appearing prevascular and paratracheal lymph nodes. Communications: Verify Receipt Electronically signed by: Cody Franco MD 11/04/22 04:01 AM
[2022-11-04] MEDS ORDERED: Heparin IV Adult Wt-Based Standard WITH Bolus Protocol IV STA (04:12)
[2022-11-04] MEDS ORDERED: ALBUT/IPRATROP 3MG/0.5MG NEB 3 ML VIAL NEB STA (04:12)
[2022-11-04 04:26] LABS: Partial Thromboplastin Ratio 0.9; Partial Thromboplastin Time 25.9 Seconds (21.0-31.0); Prothrombin Time 10.8 Seconds (9.0-12.0)
[2022-11-04] MEDS ORDERED: HEPARIN SOD (PORCINE) 1000 UNIT/ML IV ONE (04:28)
[2022-11-04] MEDS ORDERED: HEPARIN SODIUM/DEXTROSE 25,000 UNITS/500 ML BAG IV SCH (04:30)
[2022-11-04] MEDS ORDERED: HEPARIN SOD (PORCINE) 1000 UNIT/ML IV STA (04:36)
[2022-11-04] MEDS ORDERED: FUROSEMIDE 40 MG/4 ML VIAL IV ONE (05:21)
[2022-11-04 06:35] VITALS: TEMP 98.4
[2022-11-04] MEDS ORDERED: ALBUTEROL HFA 8 GM INHALER INH PRN (06:36)
[2022-11-04] MEDS ORDERED: LEVALBUTEROL 1.25 MG/3 ML NEB NEB PRN (06:36)
[2022-11-04] MEDS ORDERED: ACETAMINOPHEN 325 MG TAB PO PRN (06:36)
[2022-11-04] MEDS ORDERED: POLYETHYLENE (MIRALAX) 17 GM PACK PO PRN (06:36)
[2022-11-04] MEDS ORDERED: LEVOTHYROXINE SODIUM 25 MCG TABLET PO SCH (06:36)
--- NOTE | 2022-11-04 06:51 | XRay Report ---
XR chest 1V portable HISTORY: 67 years-old Female Dyspnea acute shortness of breath COMPARISON: CTA chest of same day, chest radiograph 10/25/2022, chest CT 10/23/2022. TECHNIQUE: AP view of the chest FINDINGS: Cardiomediastinal and hilar silhouettes are within normal limits. Extensive bilateral mixed interstit ial and alveolar opacities. Trace pleural effusions. No pneumothorax. Bones appear grossly intact. IMPRESSION: 1. Mixed interstitial and alveolar opacities are again noted and are better evaluated on the CTA ches t of same day, mildly progressed compared to the 10/25/2022 exam. 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 2. Trace pleural effusions. ACT 112: Negative or not required by law. The above report was generated using voice recognition software. It may contain grammatical, syntax o r spelling errors. Electronically signed by: Karthik Alonzo M.D. 11/04/2022 6:48 AM
[2022-11-04] MEDS ORDERED: XOPENEX/ATROVENT 1.25mg/0.5MG NEB COMBO NEB SCH (07:00)
[2022-11-04] MEDS: LEVALBUTEROL 1.25 MG/3 ML NEB NEB SCH ×2 (07:14→13:41)
[2022-11-04] MEDS: IPRATROPIUM BROMIDE NEB SOLN 0.02% 2.5 ML VIAL INH SCH ×2 (07:14→13:41)
[2022-11-04] MEDS ORDERED: PIPERACILLIN/TAZOBACTAM 4.5 GM/120 ML BAG IV ONE (07:30)
[2022-11-04] MEDS ORDERED: ASPIRIN 81 MG ECTAB PO SCH (09:00)
[2022-11-04] MEDS ORDERED: CEROVITE ADV FORMULA TAB PO SCH (09:00)
[2022-11-04] MEDS ORDERED: UMECLIDINIUM BROMIDE 62.5MCG/BLISTER 7 PUFFS/INHALER INH SCH (09:00)
[2022-11-04] MEDS ORDERED: FLUTICASONE/VILANTEROL 100/25MCG 14 PUFFS/INHALER INH SCH (09:00)
[2022-11-04 09:24] LABS: Adenovirus PCR Not Detected (NotDetected); Bordetella parapertussis PCR Not Detected (NotDetected); Bordetella pertussis PCR Not Detected (NotDetected); Chlamydia pneumoniae PCR Not Detected (NotDetected); Coronavirus 229E PCR Not Detected (NotDetected); Coronavirus CoV-2 (COVID19)PCR Not Detected (NotDetected); Coronavirus HKU1 PCR Not Detected (NotDetected); Coronavirus NL63 PCR Not Detected (NotDetected); Coronavirus OC43PCR Not Detected (NotDetected); Human Metapneumovirus PCR Not Detected (NotDetected); Influenza A PCR Not Detected (NotDetected); Influenza B PCR Not Detected (NotDetected); Mycoplasma pneumoniae PCR Not Detected (NotDetected); Parainfluenza Virus 1 PCR Not Detected (NotDetected); Parainfluenza Virus 2 PCR Not Detected (NotDetected); Parainfluenza Virus 3 PCR Not Detected (NotDetected); Parainfluenza Virus 4 PCR Not Detected (NotDetected); Respiratory Syncytial VirusPCR Not Detected (NotDetected); Rhinovirus/Enterovirus PCR Not Detected (NotDetected)
--- NOTE | 2022-11-04 09:39 | Palliative Care Consultation ---
Date of Consultation November 04, 2022 Assessment & Plan (1) Palliative care by specialist: I spoke with pt JACQUI, her daughter in law Yashira by phone: I provided overview of Palliative Medicine, a subspecialty that provides specialized medical care for people living with a serious illness by offering a focus on quality of life. Palliative Medicine is often conflated with hospice: I advised patient/family that Palliative and hospice can be partners but we are not the same. It is important to understand the difference so that we may be informed, and not afraid. Palliative Medicine works to improve QOL through reduction of symptom burden/more control over their illness, for both the patient and family. Palliative medicine clinicians are board certified, specially-trained and another member of the patient's medical care team. We often provide an extra layer of support because our care is based on the needs of the patient, not the prognosis; as such, it's appropriate at any age/advancing stage of a serious illness and can be provided along with curative treatment. Palliative Medicine clinicians are also trained in advanced communication methodologies, to facilitate complex discussions about advanced illness planning, which are needed to help assure that the treatment choices match the patient's goals, aka delivering Goal Concordant care. Finally, we discussed that hospice is a visiting nurse service that focuses on care delivered at the very end of life for patients with terminal illness, with life expectancy less than 6 month. I provided education about the hospice benefit: an interdisciplinary program offered by nurses, nurses aides, social workers, chaplains and a medical aides teacher for patients with a terminal condition and a life expectancy of less than 6 months. This is covered by Medicare at 100%/no out of pocket expense to patient and all meds/supplies needed by patient for the reason they are on hospice are paid for/covered by hospice. The goal is assure quality of life of the patient in their home setting (home, skilled nursing, inpatient hospice setting ) by providing symptoms management, psychosocial and spiritual support. However, they cannot offer 24 hours care and if the family is unable to provide that care, they will have to consider personal care with out of pocket cost vs. skilled nursing placement. We discussed the goals of hospice as a patient service and the goals of care; we discussed EOL trajectories and transitions lillian the emotional impact of realizing mortality as a concrete reality from prior abstract considerations. Pt was reassured that no matter where they are along this trajectory, they are not alone - their medical team will remain by their side through their journey. Discussed the pros/cons of accepting help when especially weakened and distressed by pain-which would also help provide relief/decrease caregiver burden/strain. (2) Advanced care planning/counseling discussion: Tel call x 20 min with patient's POA and daughter in law, Yashira Padilla, contact #[phone]. Pt saw pcp Dr. Van Aquino yesterday and was referred to [facility] hospice/ask for Christina - pt pcp ordered referral and sent over I updated ED CM and primary team. If Hospice can admit today, pt will not need admission as family remains consistent in their goal for comfort care. Yashira would like pt home as soon as safely possible with addition of hospice, but she is clear that she does not want there to be time without hospice enrollment given the intensity of pt symptoms. (3) Dyspnea and respiratory abnormalities: (4) Encounter for hospice care discussion: I provided education about the hospice benefit: an interdisciplinary program offered by nurses, nurses aides, social workers, chaplains and a medical aides teacher for patients with a terminal condition and a life expectancy of less th an 6 months. This is covered by Medicare at 100%/no out of pocket expense to patient and all meds/supplies needed by patient for the reason they are on hospice are paid for/covered by hospice. The goal is assure quality of life of the patient in their home setting (home, skilled nursing, inpatient hospice setting) by providing symptoms management, psychosocial and spiritual support. However, they cannot offer 24 hours care and if the family is unable to provide that care, they will have to consider personal care with out of pocket cost vs. skilled nursing placement. We discussed the goals of hospice as a patient service and the goals of care; we discussed EOL trajectories and transitions lillian the emotional impact of realizing mortality as a concrete reality from prior abs tract considerations. Pt was reassured that no matter where they are along this trajectory, they are not alone - their medical team will remain by their side through their journey. Discussed the pros/cons of accepting help when especially weakened and distressed by pain-which would also help provide relief/decrease caregiver burden/strain. (5) Metastatic breast cancer: (6) Acute hypoxemic respiratory failure: (7) Weakness generalized: Plan Dr Aquino, patient's PCP, already referred pt to [facility] hospice. If they can admit her today, she can be dc home with hospice from ED and NO ADMISSION IS NEEDED FOR THIS PATIENT WHO IS AWAITING HOSPICE ADMISSION FOR TERMINAL CANCER. She does not need telemetry. Palliative prognostics support short anticipated survival of approx 1 mo. I have updated primary team I have updated CM and advised of potential for dc home if hospice can be arranged. Comfort care reccs: Roxanol dispense 30ml and take 10mg PO q2h prn air hunger or pain, Ativan dispense #15 and take 1 mg PO q6h prn anxiety or nausea. This is a 5 day supply,hospice will provide all meds. Would continue oral Abtx for dc, complete at home as desired OK to give 1 mo Eliquis - pt and family can review benefit of continuing this medication, though pt may not have the window of time to prolong therapy. Multiple conversations with primary team throughout the day Thank you for allowing us to participate in the ongoing care of this patient. Please don't hesitate to call or page with any additional concerns. Dr. Marlena Woody DNP Director, Palliative Care History of Present Illness Reason for Consultation: "met breast ca" Requesting Physician: Mohini Attending Physician: Usman Veronica MD History of Present Illness Arrived at ED overnight with compliant of uncontrolled dyspnea: "This 67-year-old female with recently diagnosed metastatic breast carcinoma to the lung going to start hospice today presents to the ER for worsening shortness of breath. She is chronically on 3 L. Breathing is getting worse. Patient denies chest pain, fever, chills, flulike illness. She states she would like help breathing. She is not currently doing chemo or radiation." Recent admission 10/23 - 10/26/22 for acute on chronic hypox resp failure with known smoking related COPD + breast ca with mets to lung. She reported trying to get oxygen from [facility] but her insurance would not cover it. Further details are unavailable in medical record. Allergies Allergy/AdvReac Type Severity Reaction Status Date / Time Nitrate Analogues Allergy Intermediate ITCHING Verified 11/04/22 02:47 nitrofurantoin Allergy Intermediate ITCHING Verified 11/04/22 02:47 scopolamine Allergy Unknown Unknown Verified 11/04/22 02:47 Home Medications Medication Instructions Recorded Confirmed Type albuterol sulfate 90 mcg/actuation 2 puff inhalation DIRECTED PRN 10/22/22 11/04/22 History aerosol inhaler Shortness Of Breath Or Wheezing aspirin 81 mg tablet,delayed 81 mg PO DAILY 10/22/22 11/04/22 History release vit C 250 mg-vit E 90 mg-zinc 40 1 tab PO BID 10/22/22 11/04/22 History mg-copper 1 [id number] capsule (PreserVision AREDS-2) budesonide-formoterol HFA 160 2 inh inhalation BID 30 days #10.2 10/26/22 11/04/22 Rx mcg-4.5 mcg/actuation aerosol grams inhaler (Symbicort) ipratropium bromide 0.02 % 0.5 mg (2.5 mL) inhalation Q4H PRN 10/26/22 11/04/22 Rx solution for inhalation shortness of breath/wheezing 30 days #75 mL levalbuterol HCl 1.25 mg/0.5 mL 1.25 mg (0.5 mL) inhalation Q4H 10/26/22 3 Rx solution for nebulization PRN shortness of breath or wheezing 30 days #30 ea levothyroxine 25 mcg tablet 25 mcg PO DAILYBB 30 days #30 tabs 10/26/22 11/04/22 Rx (Synthroid) umeclidinium 62.5 mcg/actuation 1 inh inhalation DAILY 30 days #30 10/26/22 11/04/22 Rx blister powder for inhalation ea (Incruse Ellipta) apixaban 5 mg tablet (Eliquis) 5 mg PO UD 30 days #45 tabs 11/04/22 Rx furosemide 20 mg tablet (Lasix) 20 mg PO DAILY #30 tabs 11/04/22 Rx ipratropium bromide 0.02 % 0.5 mg (2.5 mL) inhalation Q6R 7 11/04/22 Rx solution for inhalation days #75 mL levalbuterol HCl 1.25 mg/3 mL 1.25 mg (3 mL) NEB Q6R 7 days #75 11/04/22 Rx solution for nebulization mL lorazepam 1 mg tablet (Ativan) 1 mg PO Q6H PRN anxiety #20 tabs 11/04/22 Rx morphine 10 mg/5 mL oral solution 10 mg (5 mL) PO Q3H PRN 11/04/22 Rx dyspnea/pain #30 mL potassium chloride 20 mEq 20 meq PO DAILY #30 tabs 11/04/22 Rx tablet,extended release prednisone 10 mg tablet 10 mg PO DAILY #30 tabs 11/04/22 Rx Patient History Medical History (Updated 11/04/22 @ 09:49 by Marlena Woody DNP) Advanced care planning/counseling discussion Dyspnea and respiratory abnormalities Encounter for hospice care discussion Metastatic breast cancer Palliative care by specialist Weakness generalized Social History Smoking Status: Former smoker Smoking End Date: 2018; Second Hand Exposure: No; Do You Dip or Chew Tobacco: No; Hx Alcohol Use: No Hx Substance Use: No Preferred Language: Tunisian Communication Ability: Effective Director Of Accounts Payable Required: No Beliefs That Will Affect Care: Faith Current Living Situation: Other Current Living Situation Comment: Patient lives with sister in a house Feels Safe at Home: Yes Safety Concerns: Feels Safe At This Time Assistive Devices: None Review of Systems Review of Systems: All systems reviewed & are unremarkable except as noted in Subjective Physical Exam Physical Exam: For Oncology Patients: Patient's Palliative Prognostic Score (PaP) Score= 11 points/Interpretation:30-day survival probability 30-70% Patient's Palliative Prognostic Index (PPI) Score = 15 points/Note:If the PPI is greater than 6.0, survival is less than three weeks (Sensitivity - 80%; Specificity - 85%). Results & Data Vital Signs (Past 12 Hours) Vital Signs Temp Pulse Pulse Resp BP BP Pulse Ox 11/04/22 08:00 109 H 15 130/65 98 11/04/22 07:14 108 H 22 98 11/04/22 06:30 113 H 17 97 11/04/22 06:30 110/61 11/04/22 06:00 121 H 24 92 11/04/22 06:00 139/83 11/04/22 05:30 121 H 22 93 11/04/22 05:30 149/87 H 11/04/22 06:19 11/04/22 06:19 36.9 C 121 H 18 139/83 91 11/04/22 05:00 122 H 15 92 11/04/22 05:00 148/82 H 11/04/22 04:30 115 H 16 98 11/04/22 04:30 158/84 H 11/04/22 04:00 117 H 17 92 11/04/22 04:00 144/81 H 11/04/22 03:55 117 H 20 89 L 11/04/22 03:57 117 H 11/04/22 03:33 114 H 22 95 11/04/22 02:32 95 11/04/22 02:32 36.8 C 118 H 20 100/60 94 O2 Del Method O2 Flow Rate 11/04/22 08:00 Nasal Cannula 4 11/04/22 07:14 Nasal Cannula 4 11/04/22 06:30 11/04/22 06:30 11/04/22 06:00 11/04/22 06:00 11/04/22 05:30 11/04/22 05:30 11/04/22 06:19 Nasal Cannula 3 11/04/22 06:19 Nasal Cannula 4 11/04/22 05:00 11/04/22 05:00 11/04/22 04:30 11/04/22 04:30 11/04/22 04:00 11/04/22 04:00 11/04/22 03:55 11/04/22 03:57 11/04/22 03:33 Nasal Cannula 3 11/04/22 02:32 Nasal Cannula 3 11/04/22 02:32 Nasal Cannula 3 Laboratory Results labs and data reviewed Diagnostic Findings labs and data reviewed PG Care Time/CCT Total # of Minutes Spent Total Time Spent: 78 Total Time Spent with Patient: Total time spent is greater than 50% in coordination of care (as documented) at patient's floor/unit and/or counseling patient: [place] [address] IN/OBS CONSULT LVL 4,60M Patient Type New History Comprehensive Medical Decision Making Moderate Complexity Diagnoses Palliative care by specialist Z51.5 Advanced care planning/counseling discussion Z71.89 Dyspnea and respiratory abnormalities R06.00; R06.89 Encounter for hospice care discussion Z71.89 Metastatic breast cancer C50.919 Acute hypoxemic respiratory failure J96.01 Weakness generalized R53.1
[2022-11-04] MEDS: methylPREDNISolone 40 MG in SYRINGE 0 ML IV SCH ×2 (09:47→14:24)
--- NOTE | 2022-11-04 10:16 | Electrocardiogram Report ---
Test Reason : Blood Pressure : / mmHG Vent. Rate : 114 BPM Atrial Rate : 114 BPM P-R Int : 122 ms QRS Dur : 074 ms QT Int : 324 ms P-R-T Axes : 047 -08 024 degrees QTc Int : 446 ms Sinus tachycardia possible Inferior infarct , age undetermined Abnormal ECG When compared with ECG of 23-OCT-2022 00:15, Inferior infarct is now Present Confirmed by Marques Hinds ([id number]) on 11/04/2022 10:16:29 AM Referred By: REFERRED SELF Confirmed By:Rome Hinds
--- NOTE | 2022-11-04 10:23 | History and Physical Report ---
DATE OF ADMISSION: 11/04/2022 CHIEF COMPLAINT: Shortness of breath. HISTORY OF PRESENT ILLNESS: A 67-year-old female with past medical history significant for metastatic breast cancer, probable underlying COPD, history of chronic kidney disease stage III, hypothyroidism, past tobacco abuse, presents with shortness of breath. The patient has planned to go to hospice care. She is not getting any chemo or any treatment for her cancer. She was recently here in the hospital, was admitted on 10/23/2022 and discharged on 10/26/2022. At that time, she was treated for COPD exacerbation and also possible pneumonia, also found to have elevated TSH, started on levothyroxine. She has a recent diagnosis of breast cancer with lung mets. She says she is using 3 liters of oxygen at home, she is using 1 liter at rest and 3 liters with ambulation, but she is not ambulating much. Appetite is down. Denies any chest pain, has some cough. No fevers, no headache, no dizziness, no blurred visions, no earache, no runny nose, no sore throat, no difficulty swallowing. No abdominal pain. Normal bowel and bladder movements. The CTA chest in the ER showed pulmonary emboli in the left lower lobe. No convincing evidence of heart strain. Extensive interstitial airspace opacities, favor to represent pulmonary edema; a component of infection could be present. The patient is answering only yes or no. Her [id number] is in the room. The patient is living with her sister. The patient will be DNR/DNI. ALLERGIES: NITROFURANTOIN, SCOPOLAMINE, NITRATES. PAST MEDICAL HISTORY: As mentioned above. PAST SURGICAL HISTORY: Carpal tunnel surgery, ligation of oviducts, tonsillectomy and adenoidectomy. MEDICATIONS: Albuterol 2 puffs inhalation p.r.n., aspirin 81 mg p.o. daily, Symbicort 2 inhalations b.i.d., levalbuterol and ipratropium q.4 hours p.r.n., Synthroid 25 mcg p.o. daily, PreserVision AREDS 1 tablet p.o. daily, Incruse inhalation daily. FAMILY HISTORY: Significant for sister has breast cancer, father had heart attack, mother had heart attack. SOCIAL HISTORY: Former smoker, quit smoking in 2015. Smoked half pack a day. No alcohol use. No drug use. REVIEW OF SYSTEMS: As per HPI. Rest of the review of systems is negative. PHYSICAL EXAMINATION: GENERAL: The patient is of moderate build, not in acute distress. VITAL SIGNS: Temperature 36.8, pulse 122, respiratory rate 15, blood pressure 148/82, oxygen 92% on 3 liters. HEENT: Pupils equal, round and reactive to light. Oral mucosa moist. NECK: No JVD. No neck masses. CARDIOVASCULAR: S1 and S2 heard. Tachycardia. LUNGS: Bilateral rhonchi heard. Bibasilar crackles. ABDOMEN: Soft, bowel sounds present, nontender, no distention. CENTRAL NERVOUS SYSTEM: Cranial nerves II through XII grossly intact, nonfocal. EXTREMITIES: No edema, no erythema. LABORATORY DATA: WBC 8.4, hemoglobin 9.7, hematocrit 30.7, platelets 324. PT 10.8, INR 1, APTT 25.9. Sodium 138, potassium 4.8, chloride 105, bicarbonate 23, BUN 26, creatinine 1.39, serum glucose 108, calcium 9.7, total bilirubin 0.3, AST 116, ALT 85, alkaline phosphatase 347. Troponin I high sensitivity 12.1. BNP 77. SARS-CoV-2 rapid test negative. IMAGING: Chest x-ray: Possible mild congestion. CTA chest: Suboptimal. CTA chest shows one subsegmental PE in the left lower lobe. No convincing evidence of right heart strain. Extensive interstitial and airspace opacities, favor to represent pulmonary edema. A component of infection could also present in the appropriate clinical setting. Similar appearing poorly circumscribed soft tissue mass in the left chest wall, suspicious for malignancy. Enlarged left axillary lymph nodes, metastatic appearing perivascular and paratracheal lymph nodes. ELECTROCARDIOGRAM: Sinus tachycardia at a rate of 114, QTc 446. ASSESSMENT AND PLAN: This is a 67-year-old female with metastatic breast cancer, metastasis to lungs, currently planning for hospice care, presents with shortness of breath. 1. Acute respiratory distress, most likely secondary to metastasis to the lungs and left lower lobe pulmonary embolism on the CAT scan. Started on IV heparin. Possible chronic obstructive pulmonary disease exacerbation, received steroids and nebulizers, which will be continued. Questionable pulmonary edema. We will give a dose of Lasix . BNP is okay. Questionable infectious process, we will be starting Zosyn. We will check procalcitonin; if negative, we can stop the antibiotic. Monitor in the hospital. 2. Metastatic breast cancer. The patient is considering hospice care. Currently not on any treatment. . We will consult palliative care. 3. Hypothyroidism. Continue Synthroid. 4. Chronic kidney disease stage III. We will follow the laboratories. 5. Anemia, probably from the ongoing malignancy. We will follow the laboratories. 6. Mild transaminitis of alkaline phosphatase, secondary to metastatic disease. We will follow the repeat laboratories. Dvt px. on iv heparin DISPOSITION: Closely monitor in the med-tele. Social service to help with discharge planning. DNR/DNI. Job ID: [id number] MARYANNE
[2022-11-04 11:54] VITALS: BP 110/69
[2022-11-04 12:16] LABS: Partial Thromboplastin Ratio 3.1
[2022-11-04 12:42] LABS: Partial Thromboplastin Time 86.8 Seconds (21.0-31.0)
[2022-11-04] MEDS ORDERED: LEVALBUTEROL 1.25MG/0.5ML NEB ONE (13:39)
[2022-11-04 13:46] VITALS: O2SAT 95
[2022-11-04] MEDS ORDERED: PIPERACILLIN/TAZOBACTAM 4.5 GM in DEXTROSE 5% 100 ML IV SCH (14:00)
[2022-11-04] MEDS ORDERED: HEPARIN STOP ORDER ONE (14:15)
--- NOTE | 2022-11-04 14:17 | Hospitalist Progress Note ---
Date of Service November 04, 2022 Assessment & Plan (1) Dyspnea and respiratory abnormalities: Plan Per admitting service notes with addendum ASSESSMENT AND PLAN: This is a 67-year-old female with metastatic breast cancer, metastasis to lungs, currently planning for hospice care, presents with shortness of breath. 1. Acute respiratory distress, most likely secondary to metastasis to the lungs and left lower lobe pulmonary embolism on the CAT scan. Started on IV heparin. Possible chronic obstructive pulmonary disease exacerbation, received steroids and nebulizers, which will be continued. Questionable pulmonary edema. We will give a dose of Lasix . BNP is okay. Questionable infectious process, we will be starting Zosyn. We will check procalcitonin; if negative, we can stop the antibiotic. Monitor in the hospital. -- Patient will be discharged on prednisone taper, Lasix, antibiotics --Discussed with palliative care service, as needed meds for comfort also ordered Hospice care service team to meet with patient upon return home 2. Metastatic breast cancer. The patient is considering hospice care. Currently not on any treatment. 3. Hypothyroidism. Continue Synthroid. 4. Chronic kidney disease stage III. 5. Anemia, probably from the ongoing malignancy. 6. Mild transaminitis of alkaline phosphatase, secondary to metastatic disease. Dvt px. on iv heparin DISPOSITION:Discharge to home with hospice care services Admission and Anticipated Discharge Date Admission Date: November 04, 2022 Subjective Follow-up for shortness of breath, etc. Seen resting in bed, comfortable, not in distress On oxygen supplement States she feels improved compared to admission Denies any other symptoms States she is ready for discharge with hospice care services Review of Systems Review of Systems: all noted and negative except for above Physical Exam Physical Exam: General- oriented x 3, not in distress, speaks in sentences with no effort or accessory muscle use Eyes- anicteric Neck- no JVD Lungs-mild crackles at the bases Heart- normal rate, regular rhythm; no murmurs Abdomen- normal bowel sounds, nondistended, soft, nontender Extremities- no pretibial edema, no calf tenderness Neuro- alert, oriented x 3; no gross focal neurologic deficits Skin- warm & dry Results & Data Results & Data Vital Signs (Past 12 Hours) Vital Signs Temp Pulse Pulse Resp BP BP Pulse Ox 11/04/22 13:43 99 H 20 95 11/04/22 11:45 101 H 21 110/69 98 11/04/22 08:00 109 H 15 130/65 98 11/04/22 07:14 108 H 22 98 11/04/22 06:30 113 H 17 97 11/04/22 06:30 110/61 11/04/22 06:00 121 H 24 92 11/04/22 06:00 139/83 11/04/22 05:30 121 H 22 93 11/04/22 05:30 149/87 H 11/04/22 06:19 11/04/22 06:19 36.9 C 121 H 18 139/83 91 11/04/22 05:00 122 H 15 92 11/04/22 05:00 148/82 H 11/04/22 04:30 115 H 16 98 11/04/22 04:30 158/84 H 11/04/22 04:00 117 H 17 92 11/04/22 04:00 144/81 H 11/04/22 03:55 117 H 20 89 L 11/04/22 03:57 117 H 11/04/22 03:33 114 H 22 95 11/04/22 02:32 95 11/04/22 02:32 36.8 C 118 H 20 100/60 94 O2 Del Method O2 Flow Rate 11/04/22 13:43 Nasal Cannula 4 11/04/22 11:45 Nasal Cannula 4 11/04/22 08:00 Nasal Cannula 4 11/04/22 07:14 Nasal Cannula 4 11/04/22 06:30 11/04/22 06:30 11/04/22 06:00 11/04/22 06:00 11/04/22 05:30 11/04/22 05:30 11/04/22 06:19 Nasal Cannula 3 11/04/22 06:19 Nasal Cannula 4 11/04/22 05:00 11/04/22 05:00 11/04/22 04:30 11/04/22 04:30 11/04/22 04:00 11/04/22 04:00 11/04/22 03:55 11/04/22 03:57 11/04/22 03:33 Nasal Cannula 3 11/04/22 02:32 Nasal Cannula 3 11/04/22 02:32 Nasal Cannula 3 all noted and reviewed including below
[2022-11-04] MEDS ORDERED: APIXABAN 5 MG TABLET PO SCH (17:00)
[2022-11-04 17:18] VITALS: PULSE 99
--- NOTE | 2022-11-09 16:27 | Discharge Summary ---
Discharge Summary Date of Service November 09, 2022 Notes For Next Care Provider Medication Changes From Visit Lasix- diuretic to remove excess fluids in the lungs Potassium - supplement Eliquis- blood thinner Prednisone- steroid Admission HPI Per Admitting Provider HISTORY OF PRESENT ILLNESS: A 67-year-old female with past medical history significant for metastatic breast cancer, probable underlying COPD, history of chronic kidney disease stage III, hypothyroidism, past tobacco abuse, presents with shortness of breath. The patient has planned to go to hospice care. She is not getting any chemo or any treatment for her cancer. She was recently here in the hospital, was admitted on 10/23/2022 and discharged on 10/26/2022. At that time, she was treated for COPD exacerbation and also possible pneumonia, also found to have elevated TSH, started on levothyroxine. She has a recent diagnosis of breast cancer with lung mets. She says she is using 3 liters of oxygen at home, she is using 1 liter at rest and 3 liters with ambulation, but she is not ambulating much. Appetite is down. Denies any chest pain, has some cough. No fevers, no headache, no dizziness, no blurred visions, no earache, no runny nose, no sore throat, no difficulty swallowing. No abdominal pain. Normal bowel and bladder movements. The CTA chest in the ER showed pulmonary emboli in the left lower lobe. No convincing evidence of heart strain. Extensive interstitial airspace opacities, favor to represent pulmonary edema; a component of infection could be present. The patient is answering only yes or no. Her [id number] is in the room. The patient is living with her sister. The patient will be DNR/DNI. ALLERGIES: NITROFURANTOIN, SCOPOLAMINE, NITRATES. PAST MEDICAL HISTORY: As mentioned above. PAST SURGICAL HISTORY: Carpal tunnel surgery, ligation of oviducts, tonsillectomy and adenoidectomy. MEDICATIONS: Albuterol 2 puffs inhalation p.r.n., aspirin 81 mg p.o. daily, Symbicort 2 inhalations b.i.d., levalbuterol and ipratropium q.4 hours p.r.n., Synthroid 25 mcg p.o. daily, PreserVision AREDS 1 tablet p.o. daily, Incruse inhalation daily. FAMILY HISTORY: Significant for sister has breast cancer, father had heart attack, mother had heart attack. SOCIAL HISTORY: Former smoker, quit smoking in 2016. Smoked half pack a day. No alcohol use. No drug use. REVIEW OF SYSTEMS: As per HPI. Rest of the review of systems is negative. PHYSICAL EXAMINATION: GENERAL: The patient is of moderate build, not in acute distress. VITAL SIGNS: Temperature 36.8, pulse 122, respiratory rate 15, blood pressure 148/82, oxygen 92% on 3 liters. HEENT: Pupils equal, round and reactive to light. Oral mucosa moist. NECK: No JVD. No neck masses. CARDIOVASCULAR: S1 and S2 heard. Tachycardia. LUNGS: Bilateral rhonchi heard. Bibasilar crackles. ABDOMEN: Soft, bowel sounds present, nontender, no distention. CENTRAL NERVOUS SYSTEM: Cranial nerves II through XII grossly intact, nonfocal. EXTREMITIES: No edema, no erythema. Principal Dx & Hospital Course #1 = Principal Diagnosis (1) Dyspnea and respiratory abnormalities: Plan Per admitting service notes with addendum ASSESSMENT AND PLAN: This is a 67-year-old female with metastatic breast cancer, metastasis to lungs, currently planning for hospice care, presents with shortness of breath. 1. Acute respiratory distress, most likely secondary to metastasis to the lungs and left lower lobe pulmonary embolism on the CAT scan. Started on IV heparin. Possible chronic obstructive pulmonary disease exacerbation, received steroids and nebulizers, which will be continued. Questionable pulmonary edema. We will give a dose of Lasix . BNP is okay. Questionable infectious process, we will be starting Zosyn. We will check procalcitonin; if negative, we can stop the antibiotic. Monitor in the hospital. -- Patient will be discharged on Eliquis, prednisone taper, Lasix, antibiotics --Discussed with palliative care service, as needed meds for comfort also ordered Hospice care service team to meet with patient upon return home 2. Metastatic breast cancer. The patient is considering hospice care. Currently not on any treatment. 3. Hypothyroidism. Continue Synthroid. 4. Chronic kidney disease stage III. 5. Anemia, probably from the ongoing malignancy. 6. Mild transaminitis of alkaline phosphatase, secondary to metastatic disease. Dvt px. on iv heparin DISPOSITION:Discharge to home with hospice care services Discharge Exam General- oriented x 3, not in distress, speaks in sentences with no effort or accessory muscle use Eyes- anicteric Neck- no JVD Lungs-mild crackles at the bases Heart- normal rate, regular rhythm; no murmurs Abdomen- normal bowel sounds, nondistended, soft, nontender Extremities- no pretibial edema, no calf tenderness Neuro- alert, oriented x 3; no gross focal neurologic deficits Skin- warm & dry Updated Medication List Medication Instructions Recorded Confirmed Type albuterol sulfate 90 mcg/actuation 2 puff inhalation DIRECTED PRN 10/22/22 11/04/22 History aerosol inhaler Shortness Of Breath Or Wheezing vit C 250 mg-vit E 90 mg-zinc 40 1 tab PO BID 10/22/22 11/04/22 History mg-copper 1 yx-mfhnxp-xhifuc capsule (PreserVision AREDS-2) budesonide-formoterol HFA 160 2 inh inhalation BID 30 days #10.2 10/26/22 11/04/22 Rx mcg-4.5 mcg/actuation aerosol grams inhaler (Symbicort) ipratropium bromide 0.02 % 0.5 mg (2.5 mL) inhalation Q4H PRN 10/26/22 11/04/22 Rx solution for inhalation shortness of breath/wheezing 30 days #75 mL levalbuterol HCl 1.25 mg/0.5 mL 1.25 mg (0.5 mL) inhalation Q4H 10/26/22 11/04/22 Rx solution for nebulization PRN shortness of breath or wheezing 30 days #30 ea levothyroxine 25 mcg tablet 25 mcg PO DAILYBB 30 days #30 tabs 10/26/22 11/04/22 Rx (Synthroid) umeclidinium 62.5 mcg/actuation 1 inh inhalation DAILY 30 days #30 10/26/22 11/04/22 Rx blister powder for inhalation ea (Incruse Ellipta) apixaban 5 mg tablet (Eliquis) 5 mg PO UD 30 days #45 tabs 11/04/22 Rx furosemide 20 mg tablet (Lasix) 20 mg PO DAILY #30 tabs 11/04/22 Rx ipratropium bromide 0.02 % 0.5 mg (2.5 mL) inhalation Q6R 7 11/04/22 Rx solution for inhalation days #75 mL levalbuterol HCl 1.25 mg/3 mL 1.25 mg (3 mL) NEB Q6R 7 days #75 11/04/22 Rx solution for nebulization mL lorazepam 1 mg tablet (Ativan) 1 mg PO Q6H PRN anxiety #20 tabs 11/04/22 Rx morphine 10 mg/5 mL oral solution 10 mg (5 mL) PO Q3H PRN 11/04/22 Rx dyspnea/pain #30 mL potassium chloride 20 mEq 20 meq PO DAILY #30 tabs 11/04/22 Rx tablet,extended release prednisone 10 mg tablet 10 mg PO DAILY #30 tabs 11/04/22 Rx Hospital Stay Data Consultations 11/04/22 04:15 ED Decision to Admit Stat 11/04/22 07:26 Consult Palliative Care Routine Diagnostic Imagining Performed 11/04/22 02:48 CT angio chest PE protocol Stat Pending Results Patient Have Any Pending Studies at Discharge: No Discharge Instructions Given to Patient (Per Discharging Provider) PLEASE REFER TO YOUR NEW MEDICATION LIST AND FOLLOW INSTRUCTIONS CAREFULLY. YOUR NEW MEDICATIONS INCLUDE: Lasix- diuretic to remove excess fluids in the lungs Potassium - supplement Eliquis- blood thinner Prednisone- steroid PLEASE CALL YOUR PRIMARY CARE PHYSICIAN OR RETURN TO THE ER IF WITH WORSENING OF SYMPTOMS, INCLUDING shortness of breath, cough, fever/chills, leg swelling, etc FOLLOW UP WITH PRIMARY CARE PHYSICIAN OUTLINED ABOVE. Total Time Total Time Spent Total Time Spent (In Minutes): > 30 minutes
--- NOTE | 2022-11-10 12:32 | Discharge Summary ---
Discharge Summary Date of Service November 10, 2022 Notes For Next Care Provider Discharge Summary Date of Service November 09, 2022 Notes For Next Care Provider Medication Changes From Visit Lasix- diuretic to remove excess fluids in the lungs Potassium - supplement Eliquis- blood thinner Prednisone- steroid Admission HPI Per Admitting Provider HISTORY OF PRESENT ILLNESS: A 67-year-old female with past medical history significant for metastatic breast cancer, probable underlying COPD, history of chronic kidney disease stage III, hypothyroidism, past tobacco abuse, presents with shortness of breath. The patient has planned to go to hospice care. She is not getting any chemo or any treatment for her cancer. She was recently here in the hospital, was admitted on 10/23/2022 and discharged on 10/26/2022. At that time, she was treated for COPD exacerbation and also possible pneumonia, also found to have elevated TSH, started on levothyroxine. She has a recent diagnosis of breast cancer with lung mets. She says she is using 3 liters of oxygen at home, she is using 1 liter at rest and 3 liters with ambulation, but she is not ambulating much. Appetite is down. Denies any chest pain, has some cough. No fevers, no headache, no dizziness, no blurred visions, no earache, no runny nose, no sore throat, no difficulty swallowing. No abdominal pain. Normal bowel and bladder movements. The CTA chest in the ER showed pulmonary emboli in the left lower lobe. No convincing evidence of heart strain. Extensive interstitial airspace opacities, favor to represent pulmonary edema; a component of infection could be present. The patient is answering only yes or no. Her [id number] is in the room. The patient is living with her sister. The patient will be DNR/DNI. ALLERGIES: NITROFURANTOIN, SCOPOLAMINE, NITRATES. PAST MEDICAL HISTORY: As mentioned above. PAST SURGICAL HISTORY: Carpal tunnel surgery, ligation of oviducts, tonsillectomy and adenoidectomy. MEDICATIONS: Albuterol 2 puffs inhalation p.r.n., aspirin 81 mg p.o. daily, Symbicort 2 inhalations b.i.d., levalbuterol and ipratropium q.4 hours p.r.n., Synthroid 25 mcg p.o. daily, PreserVision AREDS 1 tablet p.o. daily, Incruse inhalation daily. FAMILY HISTORY: Significant for sister has breast cancer, father had heart attack, mother had heart attack. SOCIAL HISTORY: Former smoker, quit smoking in 2016. Smoked half pack a day. No alcohol use. No drug use. REVIEW OF SYSTEMS: As per HPI. Rest of the review of systems is negative. PHYSICAL EXAMINATION: GENERAL: The patient is of moderate build, not in acute distress. VITAL SIGNS: Temperature 36.8, pulse 122, respiratory rate 15, blood pressure 148/82, oxygen 92% on 3 liters. HEENT: Pupils equal, round and reactive to light. Oral mucosa moist. NECK: No JVD. No neck masses. CARDIOVASCULAR: S1 and S2 heard. Tachycardia. LUNGS: Bilateral rhonchi heard. Bibasilar crackles. ABDOMEN: Soft, bowel sounds present, nontender, no distention. CENTRAL NERVOUS SYSTEM: Cranial nerves II through XII grossly intact, nonfocal. EXTREMITIES: No edema, no erythema. Principal Dx & Hospital Course #1 = Principal Diagnosis (1) Dyspnea and respiratory abnormalities: Plan Per admitting service notes with addendum ASSESSMENT AND PLAN: This is a 67-year-old female with metastatic breast cancer, metastasis to lungs, currently planning for hospice care, presents with shortness of breath. 1. Acute respiratory distress, most likely secondary to metastasis to the lungs and left lower lobe pulmonary embolism on the CAT scan. Started on IV heparin. Possible chronic obstructive pulmonary disease exacerbation, received steroids and nebulizers, which will be continued. Questionable pulmonary edema. We will give a dose of Lasix . BNP is okay. Questionable infectious process, we will be starting Zosyn. We will check procalcitonin; if negative, we can stop the antibiotic. Monitor in the hospital. -- Patient will be discharged on Eliquis, prednisone taper, Lasix, antibiotics --Discussed with palliative care service, as needed meds for comfort also ordered Hospice care service team to meet with patient upon return home 2. Metastatic breast cancer. The patient is considering hospice care. Currently not on any treatment. 3. Hypothyroidism. Continue Synthroid. 4. Chronic kidney disease stage III. 5. Anemia, probably from the ongoing malignancy. 6. Mild transaminitis of alkaline phosphatase, secondary to metastatic d isease. Dvt px. on iv heparin DISPOSITION:Discharge to home with hospice care services Discharge Exam General- oriented x 3, not in distress, speaks in sentences with no effort or accessory muscle use Eyes- anicteric Neck- no JVD Lungs-mild crackles at the bases Heart- normal rate, regular rhythm; no murmurs Abdomen- normal bowel sounds, nondistended, soft, nontender Extremities- no pretibial edema, no calf tenderness Neuro- alert, oriented x 3; no gross focal neurologic deficits Skin- warm & dry Updated Medication List Medication Instructions Recorded Confirmed Type albuterol sulfate 90 mcg/actuation 2 puff inhalation DIRECTED PRN 10/22/22 11/04/22 History aerosol inhaler Shortness Of Breath Or Wheezing vit C 250 mg-vit E 90 mg-zinc 40 1 tab PO BID 10/22/22 11/04/22 History mg-copper 1 [id number]-tolevy capsule (PreserVision AREDS-2) budesonide-formoterol HFA 160 2 inh inhalation BID 30 days #10.2 10/26/22 11/04/22 Rx mcg-4.5 mcg/actuation aerosol grams inhaler (Symbicort) ipratropium bromide 0.02 % 0.5 mg (2.5 mL) inhalation Q4H PRN 10/26/22 11/04/22 Rx solution for inhalation shortness of breath/wheezing 30 days #75 mL levalbuterol HCl 1.25 mg/0.5 mL 1.25 mg (0.5 mL) inhalation Q4H 10/26/22 11/04/22 Rx solution for nebulization PRN shortness of breath or wheezing 30 days #30 ea levothyroxine 25 mcg tablet 25 mcg PO DAILYBB 30 days #30 tabs 10/26/22 11/04/22 Rx (Synthroid) umeclidinium 62.5 mcg/actuation 1 inh inhalation DAILY 30 days #30 10/26/22 11/04/22 Rx blister powder for inhalation ea (Incruse Ellipta) apixaban 5 mg tablet (Eliquis) 5 mg PO UD 30 days #45 tabs 11/04/22 Rx furosemide 20 mg tablet (Lasix) 20 mg PO DAILY #30 tabs 11/04/22 Rx ipratropium bromide 0.02 % 0.5 mg (2.5 mL) inhalation Q6R 7 11/04/22 Rx solution for inhalation days #75 mL levalbuterol HCl 1.25 mg/3 mL 1.25 mg (3 mL) NEB Q6R 7 days #75 11/04/22 Rx solution for nebulization mL lorazepam 1 mg tablet (Ativan) 1 mg PO Q6H PRN anxiety #20 tabs 11/04/22 Rx morphine 10 mg/5 mL oral solution 10 mg (5 mL) PO Q3H PRN 11/04/22 Rx dyspnea/pain #30 mL potassium chloride 20 mEq 20 meq PO DAILY #30 tabs 11/04/22 Rx tablet,extended release prednisone 10 mg tablet 10 mg PO DAILY #30 tabs 11/04/22 Rx Hospital Stay Data Consultations 11/04/22 04:15 ED Decision to Admit Stat 11/04/22 07:26 Consult Palliative Care Routine Diagnostic Imagining Performed 11/04/22 02:48 CT angio chest PE protocol Stat Pending Results Patient Have Any Pending Studies at Discharge: No Discharge Instructions Given to Patient (Per Discharging Provider) PLEASE REFER TO YOUR NEW MEDICATION LIST AND FOLLOW INSTRUCTIONS CAREFULLY. YOUR NEW MEDICATIONS INCLUDE: Lasix- diuretic to remove excess fluids in the lungs Potassium - supplement Eliquis- blood thinner Prednisone- steroid PLEASE CALL YOUR PRIMARY CARE PHYSICIAN OR RETURN TO THE ER IF WITH WORSENING OF SYMPTOMS, INCLUDING shortness of breath, cough, fever/chills, leg swelling, etc FOLLOW UP WITH PRIMARY CARE PHYSICIAN OUTLINED ABOVE. Total Time Total Time Spent Total Time Spent (In Minutes): > 30 minutes Signed By: <Electronically signed by Usman Veronica MD> 11/09/22 1627 Created:11/09/22 162 The status of this report isSigned. Draft = Not yet reviewed or approved by Medical Physician. Signed = Reviewed and approved by Medical Physician. Medication Changes From Visit None Admission HPI Per Admitting Provider HISTORY OF PRESENT ILLNESS: A 67-year-old female with past medical history significant for metastatic breast cancer, probable underlying COPD, history of chronic kidney disease stage III, hypothyroidism, past tobacco abuse, presents with shortness of breath. The patient has planned to go to hospice care. She is not getting any chemo or any treatment for her cancer. She was recently here in the hospital, was admitted on 10/23/2022 and discharged on 10/26/2022. At that time, she was treated for COPD exacerbation and also possible pneumonia, also found to have elevated TSH, started on levothyroxine. She has a recent diagnosis of breast cancer with lung mets. She says she is using 3 liters of oxygen at home, she is using 1 liter at rest and 3 liters with ambulation, but she is not ambulating much. Appetite is down. Denies any chest pain, has some cough. No fevers, no headache, no dizziness, no blurred visions, no earache, no runny nose, no sore throat, no difficulty swallowing. No abdominal pain. Normal bowel and bladder movements. The CTA chest in the ER showed pulmonary emboli in the left lower lobe. No convincing evidence of heart strain. Extensive interstitial airspace opacities, favor to represent pulmonary edema; a component of infection could be present. The patient is answering only yes or no. Her [id number] is in the room. The patient is living with her sister. The patient will be DNR/DNI. ALLERGIES: NITROFURANTOIN, SCOPOLAMINE, NITRATES. PAST MEDICAL HISTORY: As mentioned above. PAST SURGICAL HISTORY: Carpal tunnel surgery, ligation of oviducts, tonsillectomy and adenoidectomy. MEDICATIONS: Albuterol 2 puffs inhalation p.r.n., aspirin 81 mg p.o. daily, Symbicort 2 inhalations b.i.d., levalbuterol and ipratropium q.4 hours p.r.n., Synthroid 25 mcg p.o. daily, PreserVision AREDS 1 tablet p.o. daily, Incruse inhalation daily. FAMILY HISTORY: Significant for sister has breast cancer, father had heart attack, mother had heart attack. SOCIAL HISTORY: Former smoker, quit smoking in 2016. Smoked half pack a day. No alcohol use. No drug use. REVIEW OF SYSTEMS: As per HPI. Rest of the review of systems is negative. PHYSICAL EXAMINATION: GENERAL: The patient is of moderate build, not in acute distress. VITAL SIGNS: Temperature 36.8, pulse 122, respiratory rate 15, blood pressure 148/82, oxygen 92% on 3 liters. HEENT: Pupils equal, round and reactive to light. Oral mucosa moist. NECK: No JVD. No neck masses. CARDIOVASCULAR: S1 and S2 heard. Tachycardia. LUNGS: Bilateral rhonchi heard. Bibasilar crackles. ABDOMEN: Soft, bowel sounds present, nontender, no distention. CENTRAL NERVOUS SYSTEM: Cranial nerves II through XII grossly intact, nonfocal. EXTREMITIES: No edema, no erythema. Principal Dx & Hospital Course #1 = Principal Diagnosis (1) Dyspnea and respiratory abnormalities: Plan Per admitting service notes with addendum ASSESSMENT AND PLAN: This is a 67-year-old female with metastatic breast cancer, metastasis to lungs, currently planning for hospice care, presents with shortness of breath. 1. Acute respiratory distress, most likely secondary to metastasis to the lungs and left lower lobe pulmonary embolism on the CAT scan. Started on IV heparin. Possible chronic obstructive pulmonary disease exacerbation, received steroids and nebulizers, which will be continued. Questionable pulmonary edema. We will give a dose of Lasix . BNP is okay. Questionable infectious process, we will be starting Zosyn. We will check procalcitonin; if negative, we can stop the antibiotic. Monitor in the hospital. -- Patient will be discharged on Eliquis, prednisone taper, Lasix, antibiotics --Discussed with palliative care service, as needed meds for comfort also ordered Hospice care service team to meet with patient upon return home 2. Metastatic breast cancer. The patient is considering hospice care. Currently not on any treatment. 3. Hypothyroidism. Continue Synthroid. 4. Chronic kidney disease stage III. 5. Anemia, probably from the ongoing malignancy. 6. Mild transaminitis of alkaline phosphatase, secondary to metastatic disease. Dvt px. on iv heparin DISPOSITION:Discharge to home with hospice care services Discharge Exam per above Updated Medication List Medication Instructions Recorded Confirmed Type albuterol sulfate 90 mcg/actuation 2 puff inhalation DIRECTED PRN 10/22/22 11/04/22 History aerosol inhaler Shortness Of Breath Or Wheezing vit C 250 mg-vit E 90 mg-zinc 40 1 tab PO BID 10/22/22 11/04/22 History mg-copper 1 [id number]-rkaizu-fwclzd capsule (PreserVision AREDS-2) budesonide-formoterol HFA 160 2 inh inhalation BID 30 days #10.2 10/26/22 0 11/04/22 Rx mcg-4.5 mcg/actuation aerosol grams inhaler (Symbicort) ipratropium bromide 0.02 % 0.5 mg (2.5 mL) inhalation Q4H PRN 05/08/23 05/17/23 Rx solution for inhalation shortness of breath/wheezing 30 days #75 mL levalbuterol HCl 1.25 mg/0.5 mL 1.25 mg (0.5 mL) inhalation Q4H 10/26/22 11/04/22 Rx solution for nebulization PRN shortness of breath or wheezing 30 days #30 ea levothyroxine 25 mcg tablet 25 mcg PO DAILYBB 30 days #30 tabs 10/26/22 11/04/22 Rx (Synthroid) umeclidinium 62.5 mcg/actuation 1 inh inhalation DAILY 30 days #30 10/26/22 11/04/22 Rx blister powder for inhalation ea (Incruse Ellipta) apixaban 5 mg tablet (Eliquis) 5 mg PO UD 30 days #45 tabs 11/04/22 Rx furosemide 20 mg tablet (Lasix) 20 mg PO DAILY #30 tabs 11/04/22 Rx ipratropium bromide 0.02 % 0.5 mg (2.5 mL) inhalation Q6R 7 11/04/22 Rx solution for inhalation days #75 mL levalbuterol HCl 1.25 mg/3 mL 1.25 mg (3 mL) NEB Q6R 7 days #75 11/04/22 Rx solution for nebulization mL lorazepam 1 mg tablet (Ativan) 1 mg PO Q6H PRN anxiety #20 tabs 11/04/22 Rx morphine 10 mg/5 mL oral solution 10 mg (5 mL) PO Q3H PRN 11/04/22 Rx dyspnea/pain #30 mL potassium chloride 20 mEq 20 meq PO DAILY #30 tabs 11/04/22 Rx tablet,extended release prednisone 10 mg tablet 10 mg PO DAILY #30 tabs 11/04/22 Rx Hospital Stay Data Consultations 11/04/22 04:15 ED Decision to Admit Stat 11/04/22 07:26 Consult Palliative Care Routine Diagnostic Imagining Performed 11/04/22 02:48 CT angio chest PE protocol Stat Pending Results Patient Have Any Pending Studies at Discharge: No Discharge Instructions Given to Patient (Per Discharging Provider) PLEASE REFER TO YOUR NEW MEDICATION LIST AND FOLLOW INSTRUCTIONS CAREFULLY. YOUR NEW MEDICATIONS INCLUDE: Lasix- diuretic to remove excess fluids in the lungs Potassium - supplement Eliquis- blood thinner Prednisone- steroid PLEASE CALL YOUR PRIMARY CARE PHYSICIAN OR RETURN TO THE ER IF WITH WORSENING OF SYMPTOMS, INCLUDING shortness of breath, cough, fever/chills, leg swelling, etc FOLLOW UP WITH PRIMARY CARE PHYSICIAN OUTLINED ABOVE. Total Time Total Time Spent Total Time Spent (In Minutes): >30 minutes
== END 2022-11-04 18:18 | disposition hospice, home (50) | DRG 204 ==
LOC: ED 02:28 → EDINP 05:32 → SUATTDRO 05:32 → EDINP 17:17